=== PATIENT | female | born 1940 ===

== ENCOUNTER 2023-10-07 19:22 | Inpatient (IN) | payer MEDICARE, SELFPAY ==
[2023-10-07] VITALS (7 sets, daily range): BP systolic 106–190; BP diastolic 82–114; PULSE 65–102; RESP 18–20; TEMP 36.8–37; O2SAT 96–99; BMI 18.8
--- NOTE | 2023-10-07 19:41 | ED.FALL ---
HPI - Fall General Chief Complaint: Fall Stated Complaint: GLF/ Right groin pain Time Seen by Provider: 10/07/23 19:41 Source: patient and EMS Mode of arrival: EMS History of Present Illness HPI Narrative: Patient is an 83-year-old female who is brought to the emergency department by EMS for evaluation of a right hip injury. Patient states that she tripped while going down some stairs. Prior to the fall she did not have chest pain or palpitations or lightheadedness. She seems to not know exactly what happened but states that the only injuries that she sustained to her right hip. No neck pain. She has not on blood thinners. No diagnosed medical problems. Takes no medications. Review of Systems Constitutional Constitutional: Reports system reviewed and no additional complaints, except as documented Cardiovascular Cardiovascular: Reports system reviewed and no additional complaints, except as documented Respiratory Respiratory: Reports system reviewed and no additional complaints, except as documented Gastrointestinal Gastrointestinal: Reports system reviewed and no additional complaints, except as documented Musculoskeletal Musculoskeletal: Reports system reviewed and no additional complaints, except as documented Integumentary/Breasts Skin/Breast: Reports system reviewed and no additional complaints, except as documented Hematologic/Lymphatic On Anticoagulants: No Patient History Social History Smoking Status: Never smoker Smoking Status: Never smoker alcohol intake frequency: 0-2 drinks per day Substance Use Type: does not use Exam Initial Vital Signs Initial Vital Signs: Vital Signs Temperature 98.6 F 10/07/23 19:27 Pulse Rate 102 H 10/07/23 19:27 Respiratory Rate 20 10/07/23 19:27 Blood Pressure 190/114 H 10/07/23 19:27 Pulse Oximetry 99 10/07/23 19:27 Oxygen Delivery Method Room Air 10/07/23 19:27 Const General: cooperative, comfortable and No ill appearing HENHI Head: normal to inspection and normocephalic Resp Effort & Inspection: normal respiratory effort Cardio Rate: regular rate GI Inspection: normal to inspection and non-distended Back/Spine/Pelvis Cervical Spine: No cervical spinal tenderness Skin General: no rashes or lesions noted Neuro General: patient alert and patient awake Extrem Other: Extremity exam is unremarkable except for tenderness to palpation of the right hemipelvis. Course Orders Ordered: ED Orders 10/07/23 19:41 XR hip w pel if done RT 2V Stat 10/07/23 20:19 Basic Metabolic Panel Stat Complete Blood Count AUTO DIFF Stat 10/07/23 20:20 Consult to Orthopedic Surgery Stat 10/07/23 20:21 Education, smoking cessation ONGOING 10/07/23 20:23 Prothrombin Time INR Stat Urinalysis and Microscopic Stat 10/07/23 20:24 Consult to Discharge Planning Routine Consult to Occupational Therapy Evaluate & Treat Consult to Physical Therapy Evaluate & Treat Acetaminophen (Acetaminophen 325 Mg Tablet) 650 mg PO Q6H PRN PRN Reason: Fever/Mild Pain (1-3) Hydrocodone Bitart/Acetaminophen (Hydrocodone/Acet 5/325 Tablet) 1 tab PO Q4H PRN PRN Reason: Pain, Moderate (4-6) Albuterol (Albuterol 2.5 Mg/3 Ml Neb (Adult)) 2.5 mg INH [id number] PRN PRN Reason: Dyspnea Hydromorphone HCl (Hydromorphone 0.5 Mg Inj) 0.5 mg IV Q2H PRN PRN Reason: Pain, Severe (7-10) Sodium Chloride (Normal Saline 0.9%) 1,000 mls @ 100 mls/hr IV CONT SARAH Lorazepam (Lorazepam 2 Mg/Ml Inj) 0.25 mg IV Q4HR PRN PRN Reason: Anxiety Melatonin (Melatonin 3 Mg Tablet) 9 mg PO BEDTIME PRN PRN Reason: insomnia Naloxone HCl (Naloxone 0.4 Mg/Ml Vial) 0.2 mg IV Q2MIN PRN PRN Reason: Opiate Reversal Ondansetron HCl (Ondansetron 4 Mg/2 Ml Inj) 4 mg IV Q8HR PRN PRN Reason: Nausea And Vomiting Vital Signs Vital signs: Vital Signs - 8 hr 10/07/23 19:27 10/07/23 19:27 10/07/23 19:30 Temperature 98.6 F Pulse Rate 102 H 74 87 Respiratory Rate 20 Blood Pressure 190/114 H Pulse Oximetry 99 96 97 Oxygen Delivery Method Room Air 10/07/23 19:30 10/07/23 20:00 Temperature Pulse Rate 80 Respiratory Rate Blood Pressure 184/106 H Pulse Oximetry 98 Oxygen Delivery Method Room Air MDM - Fall Lab Data Attestation: I reviewed the patient's lab results. 10/07/23 20:19 10/07/23 20:19 Imaging Data Extremity x-ray #1: Radiologist's Impression: PROCEDURE: XR HIP W PEL IF DONE RT 2V INDICATIONS: R hip pain after fall TECHNIQUE: AP pelvis with lateral view(s) of the right hip(s). COMPARISON: None. FINDINGS: Bones: Acute fracture involving subcapital region of right femoral neck is seen with medial and superior displacement at fracture site. Pelvic ring appears intact. No suspicious bony lesions. Soft tissues: The visualized bowel gas pattern is normal. No suspicious soft tissue calcifications. IMPRESSION: Acute slightly displaced right femoral neck fracture as above MDM Narrative Medical decision making narrative: Patient does have a right femoral neck fracture. Discussed the case with Dr. Huang with Orthopedic surgery who asked the patient be admitted to the medicine service. He asked the patient be NPO after midnight however there was a possibility will not be until Tuesday until the patient has surgery. He will evaluate the patient tomorrow morning. Discussed the case with Dr. Chiu hospitalist on-call who will admit for further evaluation and treatment. Discussed the need for admission with the patient. She expressed understanding and agreement. Discharge Plan Departure Patient Disposition: Admitted As Inpatient Clinical Impression: Fracture of femoral neck, right
[2023-10-07 20:27] LABS: Add Manual Diff / Slide Review NO; Basophils Absolute Auto 0 /uL (0-100); Basophils Percent Auto 0.4 % (0-2); Eosinophils Absolute Auto 0 /uL (0-450); Eosinophils Percent Auto 0.1 % (2-4); Hematocrit 37.8 % (36-46); Hemoglobin 12.7 g/dL (12.0-16.0); Lymphocytes Absolute Auto 700 /uL (1100-4500); Lymphocytes Percent Auto 6.8 % (25-40); Mean Corpuscular HGB Conc 33.7 % (30-36); Mean Corpuscular Hemoglobin 33.2 PG (26-34); Mean Corpuscular Volume 98.4 fL (80-100); Monocytes Absolute Auto 600 /uL (0-900); Monocytes Percent Auto 5.9 % (3-14); Neutrophils Absolute Auto 9000 /uL (1500-7000); Neutrophils Percent Auto 86.8 % (50-75); Platelet Count 212 X10^3/uL (150-400); Red Blood Cell Count 3.84 X10^6/uL (4.0-5.2); Red Cell Distribution Width 13.4 % (11.6-14.8); White Blood Cell Count 10.4 X10^3/uL (4.5-11.0)
[2023-10-07 20:36] LABS: INR 0.9 (0.9-1.3); Prothrombin Time 10.5 SECONDS (9.4-12.5)
[2023-10-07 20:40] LABS: Alanine Aminotransferase 24 IU/L (<35); Albumin 4.2 g/dL (3.5-5.0); Albumin Globulin Ratio 1.2 (1.0-2.8); Alkaline Phosphatase 66 U/L (38-126); Aspartate Aminotransferase 30 IU/L (14-36); Bilirubin Total 0.6 mg/dL (0.2-1.3); Blood Urea Nitrogen 20 mg/dL (7-17); Calcium 9.7 mg/dL (8.4-10.2); Carbon Dioxide 26 mmol/L (22-32); Chloride 104 mmol/L (98-107); Estimated Glomerular Filt Rate 49 mL/min (>60); Globulin 3.4 g/dL (1.7-4.1); Glucose 116 mg/dL (80-110); HEMOLYSIS < 15 (0-50); Magnesium 2.1 mg/dL (1.6-2.3); Potassium 4.5 mmol/L (3.4-5.1); Sodium 139 mmol/L (137-145); Total Protein 7.6 g/dL (6.3-8.2)
[2023-10-07 21:07] LABS: Appearance Urine UA CLEAR; Bilirubin Urine UA NEGATIVE (NEGATIVE); Color Urine UA YELLOW; Glucose Urine UA NEGATIVE (Negative); Ketones Urine UA 1+ (NEGATIVE); Leukocyte Esterase Urine UA NEGATIVE (NEGATIVE); Nitrite Urine UA NEGATIVE (Negative); Occult Blood Urine UA NEGATIVE (Negative); Protein Urine UA NEGATIVE (Negative); Urobilinogen Urine UA 0.2 E.U./dL (0.2)
[2023-10-07 21:13] LABS: Bacteria Urine None Seen; Culture Indicated Urine Cult Not Indicated; RBC Urine None Seen (0-5/HPF); Squamous Epithelial Cell Urine None Seen (0-5/HPF); Urine Volume 10mL (spun); WBC Urine None Seen (0-5/HPF)
[2023-10-07] MEDS: SODIUM CHLORIDE 0.9% 1,000 ML 100 ML IV (21:23)
--- NOTE | 2023-10-07 21:36 | P.HP_ITS ---
History of Present Illness History of Present Illness Chief complaint: GLF/ Right groin pain Narrative: 83 years old female without any past medical history presents to the ER after ground-level fall when she tripped while going down some stairs. Immediately after the fall she started to experience right hip pain. The patient is poor historian. Does not know why she is in the hospital but complain of right hip pain. Lives with her . Denies any medical problems or taking any medications. In the ER she was found to have acute slightly displaced right femoral neck fracture on x-ray. Orthopedic surgery was contacted and recommended n.p.o. after midnight and possible surgery in the morning. Laboratory was essentially unremarkable except for creatinine of 1.1 and glucose 116. [facility] Social History Smoking Status: Never smoker Review of Systems Review of Systems ROS: Yes All systems reviewed with the patient and are negative except as otherwise documented Constitutional Constitutional: Reports as per HPI and Reports system reviewed and no additional complaints, except as documented Eyes Eyes: Reports as per HPI and Reports system reviewed and no additional complaints, except as documented ENT Ears, Nose, Mouth, and Throat: Yes as per HPI and Yes system reviewed and no additional complaints, except as documented Cardiovascular Cardiovascular: Reports system reviewed and no additional complaints, except as documented Respiratory Respiratory: Reports system reviewed and no additional complaints, except as documented Gastrointestinal Gastrointestinal: Reports system reviewed and no additional complaints, except as documented Genitourinary Genitourinary: Reports system reviewed and no additional complaints, except as documented Musculoskeletal Musculoskeletal: Reports system reviewed and no additional complaints, except as documented, Reports abnormal gait and Reports numbness Neurologic Neurologic: Reports system reviewed and no additional complaints, except as documented, Reports abnormal gait, Reports confusion and Reports numbness Psychiatric Psychiatric: Reports system reviewed and no additional complaints, except as documented and Reports confusion Exam Vital Signs (past 8 hours): - 10/07/23 19:27 10/07/23 19:27 10/07/23 19:30 Temperature 98.6 F Pulse Rate 102 H 74 87 Respiratory Rate 20 Blood Pressure 190/114 H Pulse Oximetry 99 96 97 Oxygen Delivery Method Room Air Oxygen Flow Rate 10/07/23 19:30 10/07/23 20:00 10/07/23 20:30 Temperature Pulse Rate 80 85 Respiratory Rate Blood Pressure 184/106 H Pulse Oximetry 98 97 Oxygen Delivery Method Room Air Oxygen Flow Rate 10/07/23 20:31 10/07/23 20:31 10/07/23 21:00 Temperature Pulse Rate 85 80 Respiratory Rate Blood Pressure 133/89 Pulse Oximetry 98 98 Oxygen Delivery Method Room Air Room Air Oxygen Flow Rate 10/07/23 21:00 10/07/23 21:20 Temperature 98.2 F Pulse Rate 65 Respiratory Rate 18 Blood Pressure 129/82 106/85 Pulse Oximetry 99 Oxygen Delivery Method Oxygen Flow Rate 0 Oxygen Delivery Method Room Air Oxygen Flow Rate 0 Const General: cooperative, comfortable and well developed Orientation: alert and oriented x3 HENMT Head: normal to inspection, normocephalic and atraumatic Face and sinus: normal facial exam Mouth: oral mucosae normal and moist mucous membranes Throat: posterior oropharynx normal Eyes General: appearance normal, both eyes and all related structures Pupils: PERRL EOM: EOM intact bilaterally Neck Neck: normal visual inspection and full ROM Chest Chest: normal inspection of the chest Resp Effort & Inspection: normal respiratory effort and able to speak in complete sentences Auscultation: clear to auscultation bilaterally Cardio Palpation: normal PMI Rate: regular rate Rhythm: regular rhythm Heart Sounds: S1 normal and S2 normal GI Inspection: normal to inspection Palpation: soft and no hepatosplenomegaly Auscultation: normal bowel sounds Skin General: no rashes or lesions noted Lesions: no lesions Rashes: no rashes Trauma: no lacerations or abrasions Neuro General: patient alert, patient awake, patient oriented x3 and no focal motor deficits Cranial Nerves: CN's II-XI intact bilaterally Cognition: normal cognition Speech: speech normal Gait: normal gait Motor: muscle tone normal throughout Sensory Exam: no sensory deficits noted Extrem General: full ROM and no calf tenderness Psych Appearance: grossly normal Mental Status: mental status grossly normal Speech and Movement: speech and movement normal Objective Labs 10/07/23 20:19 10/07/23 20:19 Labs: Laboratory Results - last 24 hr 10/07/23 10/07/23 10/07/23 20:19 20:19 20:19 WBC 10.4 RBC 3.84 L Hgb 12.7 Hct 37.8 MCV 98.4 MCH 33.2 MCHC 33.7 RDW 13.4 Plt Count 212 Neut % (Auto) 86.8 H Lymph % (Auto) 6.8 L [place] % (Auto) 5.9 Eos % (Auto) 0.1 L Baso % (Auto) 0.4 Neut # (Auto) 9000 H Lymph # (Auto) 700 L [place] # (Auto) 600 Eos # (Auto) 0 Baso # (Auto) 0 PT 10.5 INR 0.9 Sodium Cancelled 139 Potassium Cancelled 4.5 Chloride Cancelled Carbon Dioxide BUN Creatinine Estimated GFR BUN/Creatinine Ratio Glucose Calcium Magnesium Total Bilirubin AST ALT Alkaline Phosphatase Total Protein Albumin Globulin Albumin/Globulin Ratio Urine Color Urine Appearance Urine pH Ur Specific [place] Urine Protein Urine Glucose (UA) Urine Ketones Urine Occult Blood Urine Nitrate Urine Bilirubin Urine Urobilinogen Ur Leukocyte Esterase Urine RBC Urine WBC Ur Squamous Epith Cells Urine Bacteria Ur Culture Indicated? Vol Urine Centrifuged 10/07/23 10/07/23 10/07/23 20:19 20:19 20:19 WBC RBC Hgb Hct MCV MCH MCHC RDW Plt Count Neut % (Auto) Lymph % (Auto) [place] % (Auto) Eos % (Auto) Baso % (Auto) Neut # (Auto) Lymph # (Auto) [place] # (Auto) Eos # (Auto) Baso # (Auto) PT INR Sodium Potassium Chloride 104 Carbon Dioxide Cancelled 26 BUN Cancelled 20 H Creatinine Cancelled Estimated GFR BUN/Creatinine Ratio Glucose Calcium Magnesium Total Bilirubin AST ALT Alkaline Phosphatase Total Protein Albumin Globulin Albumin/Globulin Ratio Urine Color Urine Appearance Urine pH Ur Specific [place] Urine Protein Urine Glucose (UA) Urine Ketones Urine Occult Blood Urine Nitrate Urine Bilirubin Urine Urobilinogen Ur Leukocyte Esterase Urine RBC Urine WBC Ur Squamous Epith Cells Urine Bacteria Ur Culture Indicated? Vol Urine Centrifuged 10/07/23 10/07/23 10/07/23 20:19 20:19 20:19 WBC RBC Hgb Hct MCV MCH MCHC RDW Plt Count Neut % (Auto) Lymph % (Auto) [place] % (Auto) Eos % (Auto) Baso % (Auto) Neut # (Auto) Lymph # (Auto) [place] # (Auto) Eos # (Auto) Baso # (Auto) PT INR Sodium Potassium Chloride Carbon Dioxide BUN Creatinine 1.11 H Estimated GFR Cancelled 49 L BUN/Creatinine Ratio Cancelled 18.0 Glucose Cancelled Calcium Magnesium Total Bilirubin AST ALT Alkaline Phosphatase Total Protein Albumin Globulin Albumin/Globulin Ratio Urine Color Urine Appearance Urine pH Ur Specific [place] Urine Protein Urine Glucose (UA) Urine Ketones Urine Occult Blood Urine Nitrate Urine Bilirubin Urine Urobilinogen Ur Leukocyte Esterase Urine RBC Urine WBC Ur Squamous Epith Cells Urine Bacteria Ur Culture Indicated? Vol Urine Centrifuged 10/07/23 10/07/23 10/07/23 20:19 20:19 21:01 WBC RBC Hgb Hct MCV MCH MCHC RDW Plt Count Neut % (Auto) Lymph % (Auto) [place] % (Auto) Eos % (Auto) Baso % (Auto) Neut # (Auto) Lymph # (Auto) [place] # (Auto) Eos # (Auto) Baso # (Auto) PT INR Sodium Potassium Chloride Carbon Dioxide BUN Creatinine Estimated GFR BUN/Creatinine Ratio Glucose 116 H Calcium Cancelled 9.7 Magnesium 2.1 Total Bilirubin 0.6 AST 30 ALT 24 Alkaline Phosphatase 66 Total Protein 7.6 Albumin 4.2 Globulin 3.4 Albumin/Globulin Ratio 1.2 Urine Color Yellow Urine Appearance Clear Urine pH 6.0 Ur Specific [place] 1.020 Urine Protein Negative Urine Glucose (UA) Negative Urine Ketones 1+ H Urine Occult Blood Negative Urine Nitrate Negative Urine Bilirubin Negative Urine Urobilinogen 0.2 Ur Leukocyte Esterase Negative Urine RBC None seen Urine WBC None seen Ur Squamous Epith Cells None seen Urine Bacteria None seen Ur Culture Indicated? Cult not indicated Vol Urine Centrifuged 10ml (spun) Assessment & Plan Assessment & Plan narrative: Acute slightly displaced right femoral neck fracture after ground-level fall. -N.p.o. after midnight -Pain medications and anti-emetics as needed -IV fluids -Orthopedic surgery consult -Bed rest -PT and OT evaluation on discharge Time Spent With Patient Time with patient: 50 to 69 minutes with 50% spent counseling/coordinating care Quality VTE Deep Vein Thrombosis/Pulmonary Embolism Present on Admission: No MIPS - Admit I confirm the patient?s Advance Care Plan is present, Code status is documented, Surrogate decision maker is in patient?s record [If Yes, STOP here]: Yes MIPS - Meds 'Current medications' to include all prescriptions, [id number] products, herbals, cannabis/cannabidiol products, and vitamin/mineral/dietary (nutritional) supplements. I have utilized all available resources to obtain, update, or review the patient?s current medications. [If Yes, STOP here]: Yes
[2023-10-07] MEDS: HYDROCODONE/ACET 5/325 TABLET 1 TAB PO (22:24)
[2023-10-08] VITALS (13 sets, daily range): BP systolic 114–154; BP diastolic 65–91; PULSE 65–103; RESP 12–18; TEMP 35.9–37.2; O2SAT 92–99; BMI 18.8
--- NOTE | 2023-10-08 | DI.RAD.S_ITS ---
PROCEDURE: XR HIP W PEL IF DONE RT 2V INDICATIONS: POST OP TECHNIQUE: AP pelvis and lateral view of the hip acquired. COMPARISON: [facility], CR, XR HIP W PEL IF DONE RT 2V, 10/08/2023, 19:15. [facility], CR, XR HIP W PEL IF DONE RT 2V, 10/07/2023, 19:51. FINDINGS: Bones: Patient is status post right total hip arthroplasty, with hardware components in expected positions. The hip joint appears congruent. The visualized bony structures appear intact. Soft tissues: Overlying postoperative changes are noted. No suspicious soft tissue densities. IMPRESSION: Expected post-operative appearance of a hip arthroplasty. Dictated by: Clyde Duarte M.D. on 10/08/2023 at 20:54 Approved by: Clyde Duarte M.D. on 10/08/2023 at 20:55
--- NOTE | 2023-10-08 | DI.RAD.S_ITS ---
PROCEDURE: XR HIP W PEL IF DONE RT 2V INDICATIONS: INTEROP ANTERIOR TECHNIQUE: 2 view(s) of the hip acquired. COMPARISON: [facility], CR, XR HIP W PEL IF DONE RT 2V, 10/07/2023, 19:51. FINDINGS: Bones: Patient is status post right hip arthroplasty, with hardware components in expected positions. The hip joint appears congruent. The visualized bony structures appear intact. Soft tissues: Overlying postoperative changes are noted. No suspicious soft tissue densities. IMPRESSION: Expected post-operative appearance of a hip arthroplasty. Dictated by: Clyde Duarte M.D. on 10/08/2023 at 20:11 Approved by: Clyde Duarte M.D. on 10/08/2023 at 20:12
[2023-10-08] MEDS: HYDROMORPHONE 0.5 MG INJ IV ×5 (04:52→17:17)
--- NOTE | 2023-10-08 07:21 | P.PN_ITS ---
Subjective Subjective Interval history: Patient awaiting surgery and having quite a bit of pain in her R groin. Dilaudid IV dose increased. Exam Vital Signs (past 8 hours): - 10/08/23 00:44 10/08/23 04:52 Temperature 97.7 F 98.2 F Pulse Rate 76 88 Respiratory Rate 18 18 Blood Pressure 139/71 139/66 Pulse Oximetry 97 95 Oxygen Flow Rate 0 0 Oxygen Delivery Method Room Air Oxygen Flow Rate 0 Narrative Exam Narrative: GEN: mod distress, in pain from hip fracture HEENT: moist mucous membranes, PERRL NECK: trachea midline, no JVD CV: regular rate and rhythm, no murmurs PULM: clear bilaterally ABD: soft, nontender, nondistended, no organomegaly EXT: warm and well perfused with no edema NEURO: awake, alert, oriented, no focal deficits Objective Labs 10/08/23 09:15 10/08/23 09:15 Labs: Laboratory Results - last 24 hr 10/07/23 10/07/23 10/07/23 20:19 20:19 20:19 WBC 10.4 RBC 3.84 L Hgb 12.7 Hct 37.8 MCV 98.4 MCH 33.2 MCHC 33.7 RDW 13.4 Plt Count 212 Neut % (Auto) 86.8 H Lymph % (Auto) 6.8 L [place] % (Auto) 5.9 Eos % (Auto) 0.1 L Baso % (Auto) 0.4 Neut # (Auto) 9000 H Lymph # (Auto) 700 L [place] # (Auto) 600 Eos # (Auto) 0 Baso # (Auto) 0 PT 10.5 INR 0.9 Sodium Cancelled 139 Potassium Cancelled 4.5 Chloride Cancelled Carbon Dioxide BUN Creatinine Estimated GFR BUN/Creatinine Ratio Glucose Calcium Magnesium Total Bilirubin AST ALT Alkaline Phosphatase Total Protein Albumin Globulin Albumin/Globulin Ratio Urine Color Urine Appearance Urine pH Ur Specific [place] Urine Protein Urine Glucose (UA) Urine Ketones Urine Occult Blood Urine Nitrate Urine Bilirubin Urine Urobilinogen Ur Leukocyte Esterase Urine RBC Urine WBC Ur Squamous Epith Cells Urine Bacteria Ur Culture Indicated? Vol Urine Centrifuged 10/07/23 10/07/23 10/07/23 20:19 20:19 20:19 WBC RBC Hgb Hct MCV MCH MCHC RDW Plt Count Neut % (Auto) Lymph % (Auto) [place] % (Auto) Eos % (Auto) Baso % (Auto) Neut # (Auto) Lymph # (Auto) [place] # (Auto) Eos # (Auto) Baso # (Auto) PT INR Sodium Potassium Chloride 104 Carbon Dioxide Cancelled 26 BUN Cancelled 20 H Creatinine Cancelled Estimated GFR BUN/Creatinine Ratio Glucose Calcium Magnesium Total Bilirubin AST ALT Alkaline Phosphatase Total Protein Albumin Globulin Albumin/Globulin Ratio Urine Color Urine Appearance Urine pH Ur Specific [place] Urine Protein Urine Glucose (UA) Urine Ketones Urine Occult Blood Urine Nitrate Urine Bilirubin Urine Urobilinogen Ur Leukocyte Esterase Urine RBC Urine WBC Ur Squamous Epith Cells Urine Bacteria Ur Culture Indicated? Vol Urine Centrifuged 10/07/23 10/07/23 10/07/23 20:19 20:19 20:19 WBC RBC Hgb Hct MCV MCH MCHC RDW Plt Count Neut % (Auto) Lymph % (Auto) [place] % (Auto) Eos % (Auto) Baso % (Auto) Neut # (Auto) Lymph # (Auto) [place] # (Auto) Eos # (Auto) Baso # (Auto) PT INR Sodium Potassium Chloride Carbon Dioxide BUN Creatinine 1.11 H Estimated GFR Cancelled 49 L BUN/Creatinine Ratio Cancelled 18.0 Glucose Cancelled Calcium Magnesium Total Bilirubin AST ALT Alkaline Phosphatase Total Protein Albumin Globulin Albumin/Globulin Ratio Urine Color Urine Appearance Urine pH Ur Specific [place] Urine Protein Urine Glucose (UA) Urine Ketones Urine Occult Blood Urine Nitrate Urine Bilirubin Urine Urobilinogen Ur Leukocyte Esterase Urine RBC Urine WBC Ur Squamous Epith Cells Urine Bacteria Ur Culture Indicated? Vol Urine Centrifuged 10/07/23 10/07/23 10/07/23 20:19 20:19 21:01 WBC RBC Hgb Hct MCV MCH MCHC RDW Plt Count Neut % (Auto) Lymph % (Auto) [place] % (Auto) Eos % (Auto) Baso % (Auto) Neut # (Auto) Lymph # (Auto) [place] # (Auto) Eos # (Auto) Baso # (Auto) PT INR Sodium Potassium Chloride Carbon Dioxide BUN Creatinine Estimated GFR BUN/Creatinine Ratio Glucose 116 H Calcium Cancelled 9.7 Magnesium 2.1 Total Bilirubin 0.6 AST 30 ALT 24 Alkaline Phosphatase 66 Total Protein 7.6 Albumin 4.2 Globulin 3.4 Albumin/Globulin Ratio 1.2 Urine Color Yellow Urine Appearance Clear Urine pH 6.0 Ur Specific [place] 1.020 Urine Protein Negative Urine Glucose (UA) Negative Urine Ketones 1+ H Urine Occult Blood Negative Urine Nitrate Negative Urine Bilirubin Negative Urine Urobilinogen 0.2 Ur Leukocyte Esterase Negative Urine RBC None seen Urine WBC None seen Ur Squamous Epith Cells None seen Urine Bacteria None seen Ur Culture Indicated? Cult not indicated Vol Urine Centrifuged 10ml (spun) [facility] Social History household members: spouse Smoking Status: Never smoker Assessment & Plan Assessment & Plan narrative: # Acute slightly displaced right femoral neck fracture after ground-level fall. -N.p.o. for surgery at 1400 -Pain medications and anti-emetics as needed -IV fluids -Orthopedic surgery consulted -will likely be able to go home after surgery with HH PT Dispo: Pending surgery. Likely home 10/09 with HH. Time Spent With Patient Time with patient: 50 to 69 minutes with 50% spent counseling/coordinating care Quality VTE Deep Vein Thrombosis/Pulmonary Embolism Present on Admission: No
[2023-10-08] MEDS: SODIUM CHLORIDE 0.9% 1,000 ML 100 ML IV (07:53)
[2023-10-08] MEDS: HYDROCODONE/ACET 5/325 TABLET 1 TAB PO (07:53)
[2023-10-08 09:35] LABS: Add Manual Diff / Slide Review NO; Basophils Absolute Auto 0 /uL (0-100); Basophils Percent Auto 0.6 % (0-2); Eosinophils Absolute Auto 0 /uL (0-450); Eosinophils Percent Auto 0.2 % (2-4); Hematocrit 33.9 % (36-46); Hemoglobin 11.7 g/dL (12.0-16.0); Lymphocytes Absolute Auto 900 /uL (1100-4500); Lymphocytes Percent Auto 12.9 % (25-40); Mean Corpuscular HGB Conc 34.4 % (30-36); Mean Corpuscular Hemoglobin 33.7 PG (26-34); Monocytes Absolute Auto 600 /uL (0-900); Monocytes Percent Auto 8.5 % (3-14); Neutrophils Absolute Auto 5500 /uL (1500-7000); Neutrophils Percent Auto 77.8 % (50-75); Platelet Count 190 X10^3/uL (150-400); Red Blood Cell Count 3.46 X10^6/uL (4.0-5.2); White Blood Cell Count 7.1 X10^3/uL (4.5-11.0)
[2023-10-08 09:53] LABS: BUN Creatinine Ratio 17.6 (6-22); Blood Urea Nitrogen 18 mg/dL (7-17); Calcium 8.9 mg/dL (8.4-10.2); Carbon Dioxide 25 mmol/L (22-32); Chloride 107 mmol/L (98-107); Estimated Glomerular Filt Rate 54 mL/min (>60); Glucose 113 mg/dL (80-110); HEMOLYSIS < 15 (0-50); Potassium 4.2 mmol/L (3.4-5.1); Sodium 136 mmol/L (137-145)
[2023-10-08] MEDS: HYDROMORPHONE 1 MG INJ IV ×2 (10:26→13:00)
[2023-10-08] MEDS: methocarbamoL 500 MG TABLET PO (13:00)
--- NOTE | 2023-10-08 17:52 | P.HP_ITS ---
History of Present Illness History of Present Illness Chief complaint: GLF/ Right groin pain Narrative: Patient seen in preop holding. Unable to provide history due to dementia. provides history. They are Quaker neuroscientist. She has no known medical history as she does not see a physician regularly. She had a ground level fall and was airlifted here. She has been diagnosed with a right femoral neck fracture which is displaced. She has pain in the right hip. It is worsened by movement and partially alleviated by rest. It has been present since the time of injury. [facility] Social History household members: spouse Smoking Status: Never smoker Meds Home Medications and Allergies Home Medications Medication Instructions Recorded Confirmed Type No Known Home Medications 10/07/23 10/07/23 History Allergies Allergy/AdvReac Type Severity Reaction Status Date / Time No Known Drug Allergies Allergy Verified 10/07/23 22:23 Review of Systems Review of Systems ROS: Yes All systems reviewed with the patient and are negative except as otherwise documented Exam Vital Signs (past 8 hours): - 10/08/23 13:32 10/08/23 17:45 Temperature 98.3 F 99.0 F Pulse Rate 66 89 Respiratory Rate 16 13 Blood Pressure 118/81 135/75 Pulse Oximetry 98 95 Oxygen Delivery Method Room Air Oxygen Delivery Method Room Air Oxygen Flow Rate 0 Narrative Exam Narrative: Right lower extremity: Ecchymosis around the thigh. Sensation intact to light touch in L2 through S1 nerve distributions. Flexes and extends hallux and ankle Const General: cooperative Orientation: alert and awake HENOR Head: normal to inspection Ears: hearing grossly normal bilaterally Eyes General: appearance normal, both eyes and all related structures Neck Neck: normal visual inspection Resp Effort & Inspection: normal respiratory effort and able to speak in complete sentences Cardio Pulses: other (peripheral pulses present) Skin Lesions: no lesions Rashes: no rashes Neuro General: patient alert, patient awake and moves all extremities Psych Appearance: grossly normal Objective Labs 10/08/23 09:15 10/08/23 09:15 Labs: Laboratory Results - last 24 hr 10/07/23 10/07/23 10/07/23 20:19 20:19 20:19 WBC 10.4 RBC 3.84 L Hgb 12.7 Hct 37.8 MCV 98.4 MCH 33.2 MCHC 33.7 RDW 13.4 Plt Count 212 Neut % (Auto) 86.8 H Lymph % (Auto) 6.8 L Atkinson % (Auto) 5.9 Eos % (Auto) 0.1 L Baso % (Auto) 0.4 Neut # (Auto) 9000 H Lymph # (Auto) 700 L Atkinson # (Auto) 600 Eos # (Auto) 0 Baso # (Auto) 0 PT 10.5 INR 0.9 Sodium Cancelled 139 Potassium Cancelled 4.5 Chloride Cancelled Carbon Dioxide BUN Creatinine Estimated GFR BUN/Creatinine Ratio Glucose Calcium Magnesium Total Bilirubin AST ALT Alkaline Phosphatase Total Protein Albumin Globulin Albumin/Globulin Ratio Urine Color Urine Appearance Urine pH Ur Specific [place] Urine Protein Urine Glucose (UA) Urine Ketones Urine Occult Blood Urine Nitrate Urine Bilirubin Urine Urobilinogen Ur Leukocyte Esterase Urine RBC Urine WBC Ur Squamous Epith Cells Urine Bacteria Ur Culture Indicated? Vol Urine Centrifuged Blood Type Antibody Screen Crossmatch 10/07/23 10/07/23 10/07/23 20:19 20:19 20:19 WBC RBC Hgb Hct MCV MCH MCHC RDW Plt Count Neut % (Auto) Lymph % (Auto) Atkinson % (Auto) Eos % (Auto) Baso % (Auto) Neut # (Auto) Lymph # (Auto) Atkinson # (Auto) Eos # (Auto) Baso # (Auto) PT INR Sodium Potassium Chloride 104 Carbon Dioxide Cancelled 26 BUN Cancelled 20 H Creatinine Cancelled Estimated GFR BUN/Creatinine Ratio Glucose Calcium Magnesium Total Bilirubin AST ALT Alkaline Phosphatase Total Protein Albumin Globulin Albumin/Globulin Ratio Urine Color Urine Appearance Urine pH Ur Specific [place] Urine Protein Urine Glucose (UA) Urine Ketones Urine Occult Blood Urine Nitrate Urine Bilirubin Urine Urobilinogen Ur Leukocyte Esterase Urine RBC Urine WBC Ur Squamous Epith Cells Urine Bacteria Ur Culture Indicated? Vol Urine Centrifuged Blood Type Antibody Screen Crossmatch 10/07/23 10/07/23 10/07/23 20:19 20:19 20:19 WBC RBC Hgb Hct MCV MCH MCHC RDW Plt Count Neut % (Auto) Lymph % (Auto) Atkinson % (Auto) Eos % (Auto) Baso % (Auto) Neut # (Auto) Lymph # (Auto) Atkinson # (Auto) Eos # (Auto) Baso # (Auto) PT INR Sodium Potassium Chloride Carbon Dioxide BUN Creatinine 1.11 H Estimated GFR Cancelled 49 L BUN/Creatinine Ratio Cancelled 18.0 Glucose Cancelled Calcium Magnesium Total Bilirubin AST ALT Alkaline Phosphatase Total Protein Albumin Globulin Albumin/Globulin Ratio Urine Color Urine Appearance Urine pH Ur Specific [place] Urine Protein Urine Glucose (UA) Urine Ketones Urine Occult Blood Urine Nitrate Urine Bilirubin Urine Urobilinogen Ur Leukocyte Esterase Urine RBC Urine WBC Ur Squamous Epith Cells Urine Bacteria Ur Culture Indicated? Vol Urine Centrifuged Blood Type Antibody Screen Crossmatch 10/07/23 10/07/23 10/07/23 20:19 20:19 21:01 WBC RBC Hgb Hct MCV MCH MCHC RDW Plt Count Neut % (Auto) Lymph % (Auto) Atkinson % (Auto) Eos % (Auto) Baso % (Auto) Neut # (Auto) Lymph # (Auto) Atkinson # (Auto) Eos # (Auto) Baso # (Auto) PT INR Sodium Potassium Chloride Carbon Dioxide BUN Creatinine Estimated GFR BUN/Creatinine Ratio Glucose 116 H Calcium Cancelled 9.7 Magnesium 2.1 Total Bilirubin 0.6 AST 30 ALT 24 Alkaline Phosphatase 66 Total Protein 7.6 Albumin 4.2 Globulin 3.4 Albumin/Globulin Ratio 1.2 Urine Color Yellow Urine Appearance Clear Urine pH 6.0 Ur Specific [place] 1.020 Urine Protein Negative Urine Glucose (UA) Negative Urine Ketones 1+ H Urine Occult Blood Negative Urine Nitrate Negative Urine Bilirubin Negative Urine Urobilinogen 0.2 Ur Leukocyte Esterase Negative Urine RBC None seen Urine WBC None seen Ur Squamous Epith Cells None seen Urine Bacteria None seen Ur Culture Indicated? Cult not indicated Vol Urine Centrifuged 10ml (spun) Blood Type Antibody Screen Crossmatch 10/08/23 10/08/23 09:15 09:22 WBC 7.1 RBC 3.46 L Hgb 11.7 L Hct 33.9 L MCV 98.0 MCH 33.7 MCHC 34.4 RDW 13.0 Plt Count 190 Neut % (Auto) 77.8 H Lymph % (Auto) 12.9 L Atkinson % (Auto) 8.5 Eos % (Auto) 0.2 L Baso % (Auto) 0.6 Neut # (Auto) 5500 Lymph # (Auto) 900 L Atkinson # (Auto) 600 Eos # (Auto) 0 Baso # (Auto) 0 PT INR Sodium 136 L Potassium 4.2 Chloride 107 Carbon Dioxide 25 BUN 18 H Creatinine 1.02 Estimated GFR 54 L BUN/Creatinine Ratio 17.6 Glucose 113 H Calcium 8.9 Magnesium Total Bilirubin AST ALT Alkaline Phosphatase Total Protein Albumin Globulin Albumin/Globulin Ratio Urine Color Urine Appearance Urine pH Ur Specific [place] Urine Protein Urine Glucose (UA) Urine Ketones Urine Occult Blood Urine Nitrate Urine Bilirubin Urine Urobilinogen Ur Leukocyte Esterase Urine RBC Urine WBC Ur Squamous Epith Cells Urine Bacteria Ur Culture Indicated? Vol Urine Centrifuged Blood Type B Positive Antibody Screen Negative Crossmatch See Detail Assessment & Plan Assessment and plan (1) Fracture of femoral neck, right: Status: Acute Plan Patient has reportedly fairly active doing things such as yd work however has severe dementia. She has been unaware that she has a fractured hip throughout the day today in preparation for surgery. I am going to proceed with a right hip hemiarthroplasty. Given her unknown medical condition she may have underlying comorbidities which are undiagnosed. She does not see a physician regularly due to her temple beliefs. This inherently elevates the risk of the surgery. In an attempt to mitigate this risk we have cross matched her for 2 units of packed red blood cells. She is admitted to medical service. She will likely require a prison facility stay postoperatively Quality VTE Deep Vein Thrombosis/Pulmonary Embolism Present on Admission: No
[2023-10-08] MEDS: LACTATED RINGERS 1,000 ML 42 ML IV ×2 (18:02→19:24)
[2023-10-08] MEDS: CEFAZOLIN 2 GM/100 ML PREMIX 100 ML IV (18:10)
[2023-10-08] MEDS: TRANEXAMIC ACID 1,000 MG in SODIUM CHLORIDE 0.9% 100 ML 200 MG IV ×2 (18:38→19:24)
--- NOTE | 2023-10-08 18:44 | SUR.OPER ---
Supine on padded Ola table with bilateral legs secured in padded positioning boots and suspended in positioning spars, operative leg in traction per surgeon. Head on one pillow. Arm on non-operative side secured on padded armboard <90 degrees abduction. Arm on operative side padded and resting across chest then secured with tape over sheet. Padded perineal post in place per surgeon.
[2023-10-08] MEDS: ROPIVACAINE/EPI/CLONIDINE/KET 50 ML SYRINGE INJ (18:50)
--- NOTE | 2023-10-08 20:36 | P.OP_ITS ---
Operative Date/Time/Diagnoses Date of procedure: 10/08/23 Pre-op diagnosis: Displaced right femoral neck fracture Post-op diagnosis: same Procedure & Clinicians Procedure: Right hip hemiarthroplasty Same procedure as scheduled: Yes Surgeon: Lon Huang Click Yes if Unassisted: Yes Anesthesia Type: General and Local Operative Notes Estimated Blood Loss (mL): 200 Procedure in detail: Implants: Depuy Cemented Hemiarthroplasty: * Size 3 standard offset C Stem Cemented Femoral Stem * Size 47 -3 Unipolar Femoral Head Procedure in Detail: This patient sustained a femoral neck fracture in a ground level fall. Risks and benefits of operative versus nonoperative management were discussed at length and the patient wished to proceed with operative management. ?The patient was met in the preoperative holding area. ?All questions were answered. ?The operative site was marked. ?Informed consent was signed. ?The patient was brought back to the operating room and anesthesia was induced. ?A time-out procedure was performed. ?The patient was brought back to the operating room and placed supine on the [place] table. All bony prominences were padded. She was prepped and draped in the usual sterile fashion. No physician library technical assistant was available for the procedure so I used the [employer] Gripper system for soft tissue retraction. A time-out procedure was performed following our usual inpatient protocol. She was prepped and draped in the usual sterile fashion. X- rays were displayed during the procedure demonstrating the fracture pattern on the injured hip. I began by making a direct anterior approach to the hip. The TFL and rectus muscles were split and I dissected through the floor of the TFL. The lateral circumflex vessels were identified and coagulated. Cobra retractors were placed superior and inferior to the femoral neck. I released the indirect head of rectus femoris. I made a longitudinal capsulotomy. I placed tag stitches in the capsule. I placed a soft tissue retractor over the tag stitches which remained in place for the remainder of the procedure. I replaced the Cobra retractors intracapsularly. The femoral neck was re-cut with a freshening cut below the site of the femoral neck fracture. The head was removed and measured to determine the appropriate head size for final implants. I placed a retractor over the greater trochanter and released the capsule in 90? of external rotation. I placed a [place] hook and hyperextended and adducted the leg with traction off. I externally rotated to approximately 130? and performed a release of the conjoined tendon. I elevated the femur. I broached up to a size 2 cemented stem and calcar planed. I placed trial components and removed all retractors and reduced the hip. I found that the hip was stable with maximum external rotation to 120? as well as a 45 degree drop test. On fluoroscopy there was increased offset and appropriate leg length. On an AP hip the stem was in varus. I returned to the broaching position replaced retractors and elevated the femur. I broached up to a size 3 and sank the broach to the same point as the size 2 broach. I then prepared for cementation. Prior to cementation I irrigated the canal, placed a cement restrictor, irrigated the canal again, placed epinephrine-soaked vaginal packing with a whistle-tip catheter, and removed the whistle-tip catheter after insertion of cement. Cement was allowed to dry and a unipolar hemiarthroplasty head was impacted into place on a clean dry trunnion. All retractors were removed and the hip was reduced. Fluoroscopic images were obtained demonstrating appropriate leg length and offset on an AP pelvis image as well as appropriate positioning of the stem on an AP hip image. The hip was stable with maximum external rotation to 110? as well as a 45 degree drop test. The wound was soaked with dilute Betadine and peroxide. The hip was closed using a combination of Vicryl Stratafix and Monocryl sutures. A dilute mixture of ropivacaine epinephrine clonidine and Toradol was infiltrated throughout the wound after closure of the TFL fascia. Dermabond was applied. A darby dressing was applied. The patient was transferred off of the operating room table and brought to the PACU where she awoke without complication. She was noted to have intact dorsiflexion and plantar flexion of her hallux and ankle as well as a palpable DP pulse. Postoperative images were obtained which corresponded with the intraoperative fluoroscopy. ? Plan for aftercare: * Weightbearing as tolerated * Maintain dressing until follow up in 2 weeks with our clinic. Please send with spare Aquacel dressings as patient is likely to remove them due to her dementia * Does not need to comply with anterior hip precautions as her dementia would make this too challenging for her to remember * Recommend use of a walker if patient will comply with this * Aspirin 81 twice per day for DVT prophylaxis * Has adequate home help from family but may require discharge to long-term facility due to combination of underlying dementia and this injury * Follow [facility] at [facility] in 2 weeks
[2023-10-08] MEDS: LACTATED RINGERS 1,000 ML 100 ML IV (21:29)
[2023-10-08] MEDS: ASPIRIN EC 81 MG TABLET PO (22:20)
[2023-10-08] MEDS: DOCUSATE 100 MG CAPSULE PO (22:20)
[2023-10-09] VITALS: BP 106/62; PULSE 77; RESP 16; O2SAT 97
[2023-10-09] MEDS: CEFAZOLIN 2 GM/100 ML PREMIX 100 ML IV ×2 (03:50→11:10)
[2023-10-09 04:00] VITALS: BP 115/62; PULSE 69; RESP 14; TEMP 36.3; O2SAT 100
[2023-10-09 05:28] LABS: Add Manual Diff / Slide Review NO; Basophils Absolute Auto 0 /uL (0-100); Basophils Percent Auto 0.5 % (0-2); Eosinophils Absolute Auto 100 /uL (0-450); Eosinophils Percent Auto 1.5 % (2-4); Hematocrit 30.1 % (36-46); Hemoglobin 10.3 g/dL (12.0-16.0); Lymphocytes Absolute Auto 1100 /uL (1100-4500); Lymphocytes Percent Auto 17.2 % (25-40); Mean Corpuscular HGB Conc 34.3 % (30-36); Mean Corpuscular Hemoglobin 33.8 PG (26-34); Mean Corpuscular Volume 98.7 fL (80-100); Monocytes Absolute Auto 500 /uL (0-900); Monocytes Percent Auto 7.6 % (3-14); Neutrophils Absolute Auto 4600 /uL (1500-7000); Neutrophils Percent Auto 73.2 % (50-75); Platelet Count 144 X10^3/uL (150-400); Red Blood Cell Count 3.05 X10^6/uL (4.0-5.2); Red Cell Distribution Width 13.2 % (11.6-14.8); White Blood Cell Count 6.3 X10^3/uL (4.5-11.0)
[2023-10-09 05:31] LABS: BUN Creatinine Ratio 18.2 (6-22); Blood Urea Nitrogen 16 mg/dL (7-17); Calcium 8.4 mg/dL (8.4-10.2); Carbon Dioxide 25 mmol/L (22-32); Chloride 106 mmol/L (98-107); Estimated Glomerular Filt Rate > 60 mL/min (>60); Glucose 99 mg/dL (80-110); HEMOLYSIS < 15 (0-50); Sodium 135 mmol/L (137-145)
[2023-10-09] MEDS: LORazepam 2 MG/ML INJ 0.25 MG IV (07:45)
--- NOTE | 2023-10-09 08:24 | PM.PN.1 ---
Subjective Subjective Interval history: Patient seen this morning. Eating breakfast. at bedside. I asked the patient if she knew what was done yesterday and she did not. I asked her to guess where she had had surgery and she could not. I asked her if she could feel anything out of the ordinary in her right hip and she said she could not. She is not currently reporting any significant pain Exam Vital Signs (past 8 hours): - 10/09/23 04:00 Temperature 97.3 F L Pulse Rate 69 Respiratory Rate 14 Blood Pressure 115/62 Pulse Oximetry 100 Oxygen Flow Rate 1 Fraction of Inspired Oxygen 24 SaO2/FiO2 Ratio 387 Oxygen Delivery Method Nasal Cannula Oxygen Flow Rate 1 Narrative Exam Narrative: Right lower extremity: Dressing clean dry and intact. Flexes and extends hallux and ankle. Sensation intact to light touch in L2 through S1 nerve distributions. Flexes and extends knee Objective Labs 10/09/23 04:49 10/09/23 04:49 Labs: Laboratory Results - last 24 hr 10/08/23 10/08/23 10/09/23 09:15 09:22 04:49 WBC 7.1 6.3 RBC 3.46 L 3.05 L Hgb 11.7 L 10.3 L Hct 33.9 L 30.1 L MCV 98.0 98.7 MCH 33.7 33.8 MCHC 34.4 34.3 RDW 13.0 13.2 Plt Count 190 144 L Neut % (Auto) 77.8 H 73.2 Lymph % (Auto) 12.9 L 17.2 L [place] % (Auto) 8.5 7.6 Eos % (Auto) 0.2 L 1.5 L Baso % (Auto) 0.6 0.5 Neut # (Auto) 5500 4600 Lymph # (Auto) 900 L 1100 [place] # (Auto) 600 500 Eos # (Auto) 0 100 Baso # (Auto) 0 0 Sodium 136 L 135 L Potassium 4.2 4.0 Chloride 107 106 Carbon Dioxide 25 25 BUN 18 H 16 Creatinine 1.02 0.88 Estimated GFR 54 L > 60 BUN/Creatinine Ratio 17.6 18.2 Glucose 113 H 99 Calcium 8.9 8.4 Blood Type B Positive Antibody Screen Negative Crossmatch See Detail PFSH Social History household members: spouse Smoking Status: Never smoker Assessment & Plan Assessment and plan (1) Fracture of femoral neck, right: Status: Acute Plan Status post right hip hemiarthroplasty for femoral neck fracture 10/08/2023. Patient is significantly demented. She has no pain. In order to minimize sedating medications I would recommend no opioids unless she begins complaining of severe right hip pain. She was confused overnight but did not become agitated. I anticipate she is going to eventually need a discharge to a penitentiary facility. She is weight-bearing as tolerated. She does not need to be told to comply with anterior hip precautions because she isn't going to be able to remember them. If it is possible to get her to use a walker that would be preferable. She will need to follow up with our clinic in 2 weeks for wound check. Her dressing should remain in place until that time but it will likely be necessary to send her with spare Aquacel dressings as she is eventually going to get confused and remove the [address] Occupational therapy and physical therapy have been ordered. Quality VTE Deep Vein Thrombosis/Pulmonary Embolism Present on Admission: No
[2023-10-09 08:46] VITALS: BP 127/61; PULSE 87; RESP 20; TEMP 36.1; O2SAT 96
--- NOTE | 2023-10-09 09:00 | CM.DANOTE ---
Addendum entered by Irma White R.N. 10/09/23 13:27: Faxed PASSR over to Kathleen, PASSR coordinator, to review, had hospital sign for hospital exemption. Addendum entered by Irma White R.N. 10/09/23 11:32: Sent referral over to [facility], spoke to Maria L in admissions, she will look for fax. She is not familiar with insurances. She will send an email to her staff. Addendum entered by Irma White R.N. 10/09/23 11:03: Met with patient's son, Danny. He has concerns about his dad and mother, and his dad being able to care for her. Patient does have dementia. She will be working with P.T. Stated, they both live in a large home on [address] with multiple stairs, but are loners, and have not wanted to move. He is aware that his dad can make his own decisions, but is hard when he is working hard to care for her. They have both been for about 64 years. He would like to have some options. such as assisted living facilities that he can help look into for the future. Spouse, Suhail, also in the room. Gave them the Senior Resource Book, and marked some of the assisted living facilities, such as [facility] and [facility]. Also, gave the care home list, let them know that this DC Probate Clerk will attempt [facility], but will have to see if they can accept under her insurance, and if she will work with P.T. Will go ahead and initiate the referral. Original Note: DCP: Case received, EMR reviewed and met with patient. Spouse, Mango (goes by Suhail), was at bedside. Introduced self and role. Was able to obtain information regarding patient's baseline activity level prior to her hospitalization. DCP assessment completed with information currently available. Patient is an 83 year old female who admitted on 10-07, in the am, to the care of the hospitalist team. PCP: None, patient is [employer], nikki. Payer: confirmed: [employer] Medicare. Patient came to the hospital via air lift helicopter from [facility] due to a ground level fall that occurred at home. Patient had tripped while going down the stairs. She then complained of right hip pain. Patient was noted to have acute right femoral neck fracture. Patient has hip surgery yesterday, she has not yet been up with therapy. Patient has history of dementia as well. Met with patient and spouse, Suhail, who was at bedside. Patient is pleasant, some confusion noted. Confirmed that they both reside on [facility]. They have several stairs in the home. Patient no longer drives, uses no DME. Patient does not have a primary care provider, spouse indicated she is [employer]. He did indicate that he hopes that she can go home, but if she needs to go to a care home facility, she has been to [facility] before. Let him know that this will depend upon if they accept her insurance, she has [employer] Medicare. Patient will not qualify for home health if she does not have a primary care provider. P: DCP to continue to follow. Will have to see how she does with P.T. Barriers will be living on the [facility], and the multi stairs at home. Can still go ahead and send the referral to [facility]. Irma White RN/Tanning Solution Maker Discharge Planning/Care Management CM Discharge Assessment Start: 10/09/23 08:55 Freq: Status: Active Protocol: Document 10/09/23 08:55 (Rec: 10/09/23 08:59 [id number]) Discharge Planning Assessment Assigned Learning Support Teacher Irma White Tanning Solution Maker Advance Directives? No History Provided By Patient,Family Member Prior Living Arrangements House Household Members spouse Type of transporation used prior to Relies on Others admit Independent with ADL's Yes Is patient alert and oriented? To self and place, Needs Assistance With Meal Prep,Home Chores / Shopping Caregiver for Another No Patient/Family Preference Fdc Facility,Home with Home Health Comment Discussed both with spouse in the room. Barriers to Discharge Yes Comment Patient has some dementia, they live on [facility] with multiple stairs. Discharge Plan Fdc Facility Transportation Arrangement Facility, if patient is able to go home, then, home health, would need to be [facility], since they are the only agency that goes to the [facility]. Referrals Initiated Other Additional Comment Will go ahead and send referral to [facility]. If patient plan is home with home health There are presigned face to : Has signed face to face form been face forms available. completed? If patient plan is SNF: Has PASSR been No: Will attempt to work on completed? this today. SNF/HH Preference They prefer [facility], patient has been there before. Whiteboard Updated in Patient Room with Yes name and ext. # of Learning Support Teacher Review Status In Process
--- NOTE | 2023-10-09 09:42 | PC.NURSE ---
Addendum entered by Julisa Beckett R.N. 10/09/23 18:08: Ativan did not seem to work for patient after it was given. Haldol was given around 1500 and patient has been sleeping soundly. Addendum entered by Julisa Beckett R.N. 10/09/23 16:39: was just given 2mg of iv haldol around 1500 and patient is sleeping soundly. in room and watching television. Patient has finally calmed down. Addendum entered by Julisa Beckett R.N. 10/09/23 15:09: Patient just pulled out her allen catheter, with balloon completely full of saline. No bleeding noted. She Addendum entered by Julisa Beckett R.N. 10/09/23 14:05: Patient given 0.5mg of iv ativan and this has helped her calm down a small amount. Sent out of room as he needed a break. Carlos Alberto is patients son and he is sitting with her at this time. Things are a bit better now, is sitting in the waiting room. Original Note: Patient is alert and oriented x1. She is familiar with her and son. Given 0.25mg of iv ativan this morning as patient was trying to get up and pulling at her allen catheter and ivs. She did pull out her iv this am and a new one was started to her r.fa. Patient practices restoration science faith and does not take any medications at home. Offered aspirin and stool softner, she does not want to take this as of right now. Will check back again at a later time. She has an aquacel dressing to her r.anterior hip that is cdi. Patient is visiting with her and son at this time.
--- NOTE | 2023-10-09 10:16 | PC.NURSE ---
Requested by Pt's Nurse to restart IV. 20guage angio placed right forearm without difficulty. Lynne. well by Pt. This nurse spoke with Pt's son as well. Son is concerned about parental situation and doesn't want to cause more stress on Pt's spouse while at the same time trying assist where he can. Called C.M. to fill them in on conversation.
[2023-10-09] MEDS: LORazepam 2 MG/ML INJ 0.5 MG IV (13:28)
--- NOTE | 2023-10-09 13:47 | P.PN_ITS ---
Subjective Subjective Interval history: Overnight patient removed IVs with agitation. Was given IV ativan. Per and son, patient has had declining memory over the past few years, with increasing confusion and multiple falls. Patient denies pain this morning, slightly agitated and wants to go home. Exam Vital Signs (past 8 hours): - 10/09/23 08:46 Temperature 96.9 F L Pulse Rate 87 Respiratory Rate 20 Blood Pressure 127/61 Pulse Oximetry 96 Oxygen Flow Rate 0 Fraction of Inspired Oxygen 24 SaO2/FiO2 Ratio 387 Oxygen Delivery Method Nasal Cannula Oxygen Flow Rate 0 Narrative Exam Narrative: GEN: anxious, alert oriented to name but not location or date. HEENT: moist mucous membranes, PERRL NECK: trachea midline, no JVD CV: regular rate and rhythm, no murmurs PULM: clear bilaterally ABD: soft, nontender, nondistended, no organomegaly EXT: warm and well perfused with no edema NEURO: awake, alert, oriented to name only. Objective Labs 10/09/23 04:49 10/09/23 04:49 Labs: Laboratory Results - last 24 hr 10/08/23 10/09/23 09:22 04:49 WBC 6.3 RBC 3.05 L Hgb 10.3 L Hct 30.1 L MCV 98.7 MCH 33.8 MCHC 34.3 RDW 13.2 Plt Count 144 L Neut % (Auto) 73.2 Lymph % (Auto) 17.2 L [place] % (Auto) 7.6 Eos % (Auto) 1.5 L Baso % (Auto) 0.5 Neut # (Auto) 4600 Lymph # (Auto) 1100 [place] # (Auto) 500 Eos # (Auto) 100 Baso # (Auto) 0 Sodium 135 L Potassium 4.0 Chloride 106 Carbon Dioxide 25 BUN 16 Creatinine 0.88 Estimated GFR > 60 BUN/Creatinine Ratio 18.2 Glucose 99 Calcium 8.4 Blood Type B Positive Antibody Screen Negative Crossmatch See Detail [facility] Social History household members: spouse Smoking Status: Never smoker Assessment & Plan Assessment & Plan narrative: # Acute slightly displaced right femoral neck fracture after ground-level fall, pathologic due to osteoporosis - s/p surgical management on 10/08/23 - continue PT/OT as tolerated. - will be complicated by cognitive impairment which is suspected #likely dementia with behavioral disturbance - has had declining cognition over the past few years per family. - start seroquel given overnight agitation - patient has fear of provider / medical establishment at baseline. #acute blood loss anemia - Hg to 10.3 today, likely due to surgery. Continue to monitor with daily cbc. No signs or symptoms of active bleeding currently. Code:Full, surrogate is patient's son Dispo: inpatient, dispo location is unclear at this time. Likely SNF will be needed, but unclear if patient will be agreeable. Additional history obtained via discussion with patient's son, spouse, bedside staff and discussed with case management as well to formulate the above assessment and plan. DVT: ASA BID for 6 weeks after orthopedics interventions. Time Spent With Patient Time with patient: 50 to 69 minutes with 50% spent counseling/coordinating care Quality VTE Deep Vein Thrombosis/Pulmonary Embolism Present on Admission: No
[2023-10-09] MEDS: HALOPERIDOL 5 MG/ML VIAL 2 MG IV ×3 (15:14→22:23)
--- NOTE | 2023-10-09 15:18 | PT.IIE ---
Current Diagnoses Fracture of unspecified part of neck of right femur, initial encounter for closed fracture (10/07/23) Surgery Performed Operation Date: 10/08/23 14:30 Actual Procedures p marlo Hip Arthroplasty/Anterior Approach(Right) - Lon Huang MD Physical Therapy Inpatient Evaluation/Re-Eval M1 PT/OT-IP Prior Functional Status Start: 10/09/23 16:37 Freq: NEEDED Status: Active Protocol: Document 10/09/23 15:18 DLM (Rec: 10/09/23 17:05 DLM [id number]) Medical Review Prior Functional Status Medical History Reviewed Yes Diet/Fluid Consistency Regular Communication speech is clear, hx of dementia Mobility and Gait Independent without device. Activities of Daily Living and IADL's Independent with basic ADL's. Spouse helps with many chores at home. Prior Functional Level (Other details) Her Spouse reports she used a FWW in the past after a LE fracture. The house is on [facility]. It is a 3-story home. The stairs have rails. You enter the house on the middle level then go up or down one level. From the garage there can be as many as 40 stairs. Social History Household Members spouse Living Arrangements House Number of Floors (Floors) 3 or More Floors Number of Stairs To Enter/Railing? 3 +1 steps with rail Employment Status Retired Additional Social History Comment Pt can not provide any baseline information. M2 PT-IP Current Condition Start: 10/09/23 16:37 Freq: NEEDED Status: Active Protocol: Document 10/09/23 15:18 DLM (Rec: 10/09/23 17:05 DL [id number]) Physical Therapy Current Condition Current Condition Evaluation Date 10/09/23 Treatment Diagnosis right femur fx s/p anterior SUE 10/08/23 Onset Date 10/07/23 M3 PT-IP Subjective Start: 10/09/23 16:37 Freq: NEEDED Status: Active Protocol: Document 10/09/23 15:18 DLM (Rec: 10/09/23 17:05 DL [id number]) Subjective Physical Therapy Visit Type Type Initial Evaluation Visit Start Time 14:30 Visit Stop Time 15:18 Notes 48 Number of DRY HOUSE ATTENDANT Visits 0 Physical Therapy Visit Comments Patient Comments Pt is very confused Patient Goals Her family wants her to get better and return home Therapy Pain Assessment Pain When Pain Assessed During Mobility Pain Present Pain Present Pain Reported Location Right Hip Scale Used Pt can not rate Description Aching,With Movement Pain Behaviors Facial Grimacing,Wincing Pain Management Techniques Re-positioning M4 PT-IP Mobility and Gait Start: 10/09/23 16:37 Freq: NEEDED Status: Active Protocol: Document 10/09/23 15:18 DLM (Rec: 10/09/23 17:05 DLM [id number]) PT-Bed Mobility Assessment Supine to Sit Supine to Sit Moderate Assistance Sit to Supine Sit to Supine Moderate Assistance,Maximum Assistance Scooting Scooting to Edge of Bed Standby Assistance PT-Transfer Assessment Sit to and From Stand Sit to and from Stand Minimal Assistance,Moderate Assistance Equipment Transfer Assistive Device Front Wheeled Walker Transfers Transfer Destination Bed,Chair Transfer Technique Stand Step Pivot Transfer Ability Level of Assist Moderate Assistance,Use of Upper Extremities Comments Mobility Comments Pt does not like to use the FWW and it is difficult to get her to keep her hands on the FWW, she attempts to push the FWW away and more around it. Pt pulled out her catheter during this visit. She is very difficult to redirect. She can follow simple instructions about 30% of the time. Pt does look for something to hold onto with UE's to manage her right LE pain. Pt got up to the recliner but unable to leave her there due to pt very unsafe at this time. Pt used the bedside commode to urinate per her request to go the bathroom with a small amount of urine passed after she pulled out the allen catheter. Pt returned to bed after activity for safety. Gait Assessment Gait Gait Assistance Required: Minimum Assistance,Moderate Assistance Distance (Feet) 2 Assistive Devices Assistive Device Front Wheeled Walker Gait Deviations General Gait Pattern Antalgic,Decreased Stride Length,Step-to Gait Factors Limiting Gait Function Factors Limiting Gait Function Decreased Activity Tolerance, Difficulty Following Directions,Pain,Poor Balance, Poor Safety Awareness Comments Gait Comments She is very difficult to keep inside of the fWW for gait. She is able to take a few steps with UE support on the FWW. She is unsafe during gait because she stops to reach for the floor and pulls at objects in the room. Stair Climbing Assessment Comments Stair Climbing Comments she has many stairs at home PT-Balance Assessment Sitting Balance and Reactions Static Sitting Balance Ability Good Dynamic Sitting Balance Ability Good Standing Balance and Reactions Static Standing Balance Ability Fair Dynamic Standing Balance Ability Fair Device Used FWW M5 PT-IP Objective Assessments Start: 10/09/23 16:37 Freq: NEEDED Status: Active Protocol: Document 10/09/23 15:18 DLM (Rec: 10/09/23 17:05 DL [id number]) Orientation Orientation/Cognition Level of Alertness Alert Orientation Name Safety Awareness Decreased Safety Awareness Memory Description Short Term Impaired,Usp Impaired Comments she is very confused, she gets agitated and angry but Not combative, she has difficulty following instructions, she attemps unsafe activities, unable to reason with her to change activity Gross Range of Motion Upper Extremity ROM Assessment Within Functional Limits Lower Extremity ROM Assessment Within Functional Limits Impairments pain right LE, did not attempt hip extension due to right SUE with anterior approach Strength Upper Extremity Strength Assessment Within Functional Limits Lower Extremity Strength Assessment Right Impaired Comments Strength Comments pt can not participate in MMT due to confusion, she is moving all extremites functionally but right LE is weaker than left with physical signs of pain Coordination Assessment Gross Coordination Gross Coordination WNL Sensation Assessment Comments Sensation Comments unable to test, no indications of sensory changes when feet or hands are touched Muscle Tone Muscle Tone WNL Yes M6 PT-IP Treatment Start: 10/09/23 16:37 Freq: NEEDED Status: Active Protocol: Document 10/09/23 15:18 DLM (Rec: 10/09/23 17:05 [facility] [id number]) Physical Therapy Treatment Education Education Provided Safety Other Treatments Other Treatment Performed Her and Son observed most of this treatment session and answered their questions after this visit. Her reports she is much more confused than baseline. M7 PT-IP Assessment and Plan Start: 10/09/23 16:37 Freq: NEEDED Status: Active Protocol: Document 10/09/23 15:18 DLM (Rec: 10/09/23 17:05 [facility] [id number]) PT Summary Assessment and Plan Potential Rehabilitation Potential Fair Status of Condition at Evaluation Evolving Summary Impairments Pain,ROM,Strength,Balance, Cognition,Bed Mobility, Transfers,Gait,Activity Tolerance Assessment Summary Jazlyn is alert and resting in bed with her family visiting with her. She was admitted after a fall at home where she suffered right femur fx. She underwent right SUE with anterior approach 10/08/23. She is very confused today and has difficulty following directions. She is easily distracted and figits frequently. She pulled her allen catheter out during this therapy session. She was able to stand with the FWW and transfer to a chair and to the bedside commode. She is very unsafe due to her cognitive deficits. She has functional weakness and pain in her right LE during mobility. She is resistant to using the FWW this visit but did use it for short periods of time with assistance. She needs physical assist of one person for all mobility. Recommend a second person be present when pt up moving to manage her fall risks due to her confusion and difficulty following instructions. Pt returned to bed after activity. Recommend SNF rehab at discharge to assist with her functional recovery. I am hopeful that her confusion will decrease as her medical condition improves to improve her participation in therapy. Goals Bed Mobility Goal Standby Assistance Transfer Goal Contact Guard Assistance,Front Wheeled Walker Gait Goal Contact Guard Assistance,Front Wheel Walker Gait Distance 100 feet Days to Meet Goals 5 Frequency of Treatment Frequency Of Treatment Twice a Day Treatment Plan Physical Therapy Treatment Plan Bed Mobility Training,Transfer Training,Gait Training, Therapeutic Exercise,Balance Retraining,Post Op Education, Discharge Planning,Hot or Cold Pack,Neuromuscular Re-ed Precautions Other Precautions Surgeon notes indicate NO anterior precautions needed Weight Bearing Status Weight Bearing Status Weight Bear as Tolerated Allowed Weight Bearing Amount (enter % WBAT right LE with fWW (as she or #) (%) will use the FWW per surgeon) . Recommendations To Nursing Amount of Assist Needed 2 Person Assist Discharge Recommendations PT Discharge Recommendations SNF Rehab Other Discharge Recommendations She needs 2 person assist to manage her fall risks associated with her confusion. She could transport by wheelchair if she has one-to- one caregiver transport with her due to her confusion. She may need stretcher transport if her confusion prevents her from getting into the car. Transportation Needs at Discharge Private Vehicle,Stretcher/ Ambulance
[2023-10-09 19:51] VITALS: BP 139/77; PULSE 118; RESP 16; TEMP 36.8; O2SAT 95
[2023-10-09 20:32] VITALS: TEMP 37.3
[2023-10-09] MEDS: ACETAMINOPHEN 325 MG TABLET 650 MG PO (20:32)
[2023-10-09 21:14] VITALS: TEMP 37.1
--- NOTE | 2023-10-09 22:16 | PC.NURSE ---
cigarette examiner: 1899 update: Patient is alert & oriented to self. Awoke at 1899 and became agitated, attempting to get out of bed although weak & unsteady. Pt stating that she needs to urinate, attempted w/ BSC and bedpan multiple times with no output. Bladder scanned showing 75cc. 2mg IV Haldol given for agitation which appeared to calm patient down. When asked if she was in pain patient stated yes although declined pain medicine. Patient is tachycardic in the 130's, notified MD Chiu, tele ordered & placed. Otherwise VSS. (Suhail) at the bedside. Fall precautions in place. 2099 update: Attempted to give patient 2100 medications, patient able to swallow 1 Tylenol pill w/ water, but began to pocket pills in mouth & spit them out. Attempted again w/ applesauce, no success. MD Chiu notified. 2199 update: Patient increasingly agitated, stating I have no idea what's going on, attempting to get out of bed frequently. Difficult to reorient even w/ assistance from . 2mg IV Haldol given. Will continue to monitor.
[2023-10-10] VITALS (7 sets, daily range): BP systolic 92–164; BP diastolic 47–82; PULSE 78–107; RESP 16–19; TEMP 36.1–36.9; O2SAT 95–97
[2023-10-10 05:09] LABS: Add Manual Diff / Slide Review NO; Basophils Absolute Auto 0 /uL (0-100); Basophils Percent Auto 0.3 % (0-2); Eosinophils Absolute Auto 100 /uL (0-450); Eosinophils Percent Auto 1.1 % (2-4); Hemoglobin 10.3 g/dL (12.0-16.0); Lymphocytes Absolute Auto 700 /uL (1100-4500); Lymphocytes Percent Auto 11.6 % (25-40); Mean Corpuscular HGB Conc 34.3 % (30-36); Mean Corpuscular Hemoglobin 33.8 PG (26-34); Mean Corpuscular Volume 98.4 fL (80-100); Monocytes Absolute Auto 400 /uL (0-900); Monocytes Percent Auto 6.9 % (3-14); Neutrophils Absolute Auto 4900 /uL (1500-7000); Neutrophils Percent Auto 80.1 % (50-75); Platelet Count 138 X10^3/uL (150-400); Red Blood Cell Count 3.05 X10^6/uL (4.0-5.2); Red Cell Distribution Width 13.1 % (11.6-14.8); White Blood Cell Count 6.1 X10^3/uL (4.5-11.0)
[2023-10-10 05:17] LABS: Blood Urea Nitrogen 16 mg/dL (7-17); Calcium 8.7 mg/dL (8.4-10.2); Carbon Dioxide 26 mmol/L (22-32); Chloride 105 mmol/L (98-107); Estimated Glomerular Filt Rate > 60 mL/min (>60); Glucose 101 mg/dL (80-110); HEMOLYSIS < 15 (0-50); Potassium 3.8 mmol/L (3.4-5.1); Sodium 136 mmol/L (137-145)
--- NOTE | 2023-10-10 09:23 | P.PN_ITS ---
Subjective Subjective Date Patient Seen: 10/10/23 Time Patient Seen: 09:15 Interval history: Patient is found resting comfortably. She has not able to answer direct questions secondary to dementia Her is present today. She says she was doing better this morning. She states that she has still not aware that she is in a hospital. She does acknowledge her right hip hurts. She does not recall how she hurt herself. She feels her mental status has improved over the last few days. Exam Vital Signs (past 8 hours): - 10/10/23 06:38 Temperature 98.4 F Pulse Rate 105 H Respiratory Rate 19 Blood Pressure 137/82 Pulse Oximetry 97 Oxygen Flow Rate 0 Fraction of Inspired Oxygen 24 SaO2/FiO2 Ratio 387 Oxygen Delivery Method Room Air Oxygen Flow Rate 0 Narrative Exam Narrative: Gross sensation present over the right lower extremity. Able to actively dorsiflex and plantar flex against resistance but not on command. Pain over the right greater hip region. No increased pain for warmth noted along the posterior calf or thigh. Objective Labs 10/10/23 04:29 10/10/23 04:29 Labs: Laboratory Results - last 24 hr 10/10/23 04:29 WBC 6.1 RBC 3.05 L Hgb 10.3 L Hct 30.0 L MCV 98.4 MCH 33.8 MCHC 34.3 RDW 13.1 Plt Count 138 L Neut % (Auto) 80.1 H Lymph % (Auto) 11.6 L [place] % (Auto) 6.9 Eos % (Auto) 1.1 L Baso % (Auto) 0.3 Neut # (Auto) 4900 Lymph # (Auto) 700 L [place] # (Auto) 400 Eos # (Auto) 100 Baso # (Auto) 0 Sodium 136 L Potassium 3.8 Chloride 105 Carbon Dioxide 26 BUN 16 Creatinine 0.84 Estimated GFR > 60 BUN/Creatinine Ratio 19.0 Glucose 101 Calcium 8.7 PFSH Social History household members: spouse Smoking Status: Never smoker Assessment & Plan Post-op Postoperative Procedures: Procedures Operation Date: 10/08/23 14:30 Actual Procedure Side Surgeon p marlo Hip Arthroplasty/Anterior Approach Right Lon Huang MD Postoperative day: 2 Postoperative status narrative: Status post right hip hemiarthroplasty for femoral neck fracture 10/08/2023. Patient is significantly demented. She has no pain. She is weight-bearing as tolerated, use a walker that would be preferable. She will need to follow up with our clinic in 2 weeks for wound check. Her dressing should remain in place . Continue to work with occupational therapy and physical therapy. Current plan is to discharge to [facility] for [facility] once transfer has been improved. Time Spent With Patient Time with patient: less than 15 minutes Quality VTE Deep Vein Thrombosis/Pulmonary Embolism Present on Admission: No
[2023-10-10] MEDS: ACETAMINOPHEN 325 MG TABLET 650 MG PO (09:51)
[2023-10-10] MEDS: DOCUSATE 100 MG CAPSULE PO ×2 (09:51→22:26)
[2023-10-10] MEDS: ASPIRIN EC 81 MG TABLET PO ×2 (09:51→22:26)
--- NOTE | 2023-10-10 10:37 | PT.IPTN ---
Current Diagnoses Fracture of unspecified part of neck of right femur, initial encounter for closed fracture (10/07/23) Surgery Performed Operation Date: 10/08/23 14:30 Actual Procedures p marlo Hip Arthroplasty/Anterior Approach(Right) - Lon Huang MD Physical Therapy Treatment Note M2 PT-IP Current Condition Start: 10/09/23 16:37 Freq: NEEDED Status: Active Protocol: Document 10/09/23 15:18 DLM (Rec: 10/09/23 17:05 DLM [id number]) Physical Therapy Current Condition Current Condition Evaluation Date 10/09/23 Treatment Diagnosis right femur fx s/p anterior SUE 10/08/23 Onset Date 10/07/23 M3 PT-IP Subjective Start: 10/09/23 16:37 Freq: NEEDED Status: Active Protocol: Document 10/10/23 10:37 AW (Rec: 10/10/23 11:17 AW [id number]) Subjective Physical Therapy Visit Type Type Treatment Note Visit Start Time 10:22 Visit Stop Time 10:37 Notes Co-tx with OT for safety due to impulsivity noted in initial evaluation. Number of FORGING ENGINEER Visits 0 Physical Therapy Visit Comments Patient Comments Pt is very sleepy but alertness improves with mobility Therapy Pain Assessment Pain When Pain Assessed During Mobility FLACC Pain Scale Face Occasional grimace/frown Legs Normal position; relaxed Activity Quiet, moves easily Cry No cry (awake or asleep) Consolability Reassurable with touch FLACC Total 2 M4 PT-IP Mobility and Gait Start: 10/09/23 16:37 Freq: NEEDED Status: Active Protocol: Document 10/10/23 10:37 AW (Rec: 10/10/23 11:17 AW [id number]) PT-Bed Mobility Assessment Supine to Sit Supine to Sit Minimal Assistance,Head of Bed Elevated,Bedrails Scooting Scooting to Edge of Bed Standby Assistance PT-Transfer Assessment Sit to and From Stand Sit to and from Stand Minimal Assistance,2 Person Assistance,Use of Upper Extremities Equipment Transfer Assistive Device Gait Belt,Front Wheeled Walker Transfers Transfer Destination Chair,Bedside Commode Transfer Technique Stand Step Pivot Transfer Ability Level of Assist Minimal Assistance,Moderate Assistance,1 Person Assistance ,2 Person Assistance,Use of Upper Extremities Comments Mobility Comments Pt is quite sleepy but wakes and very agreeably works with therapies Gait Assessment Gait Gait Assistance Required: Minimum Assistance Distance (Feet) 2 Able to Maintain Weight Bearing Status Yes During Gait Assistive Devices Assistive Device Gait Belt,Front Wheeled Walker Gait Deviations General Gait Pattern Antalgic,Decreased Stride Length,Step-to Gait Factors Limiting Gait Function Factors Limiting Gait Function Decreased Activity Tolerance, Difficulty Following Directions,Pain,Poor Balance, Poor Safety Awareness Comments Gait Comments Pt uses FWW but needs assist to move her hands to most stable placement on the handles. She does not appear to be in a significant amount of pain with weightbearing ( FLACC 2). Stair Climbing Assessment Comments Stair Climbing Comments Stairs are a barrier to home entry. PT-Balance Assessment Sitting Balance and Reactions Static Sitting Balance Ability Good Dynamic Sitting Balance Ability Good Standing Balance and Reactions Static Standing Balance Ability Fair Dynamic Standing Balance Ability Fair Device Used FWW M5 PT-IP Objective Assessments Start: 10/09/23 16:37 Freq: NEEDED Status: Active Protocol: Document 10/09/23 15:18 DLM (Rec: 10/09/23 17:05 DLM [id number]) Orientation Orientation/Cognition Level of Alertness Alert Orientation Name Safety Awareness Decreased Safety Awareness Memory Description Short Term Impaired,Relay Operator Impaired Comments she is very confused, she gets agitated and angry but Not combative, she has difficulty following instructions, she attemps unsafe activities, unable to reason with her to change activity Gross Range of Motion Upper Extremity ROM Assessment Within Functional Limits Lower Extremity ROM Assessment Within Functional Limits Impairments pain right LE, did not attempt hip extension due to right SUE with anterior approach Strength Upper Extremity Strength Assessment Within Functional Limits Lower Extremity Strength Assessment Right Impaired Comments Strength Comments pt can not participate in MMT due to confusion, she is moving all extremites functionally but right LE is weaker than left with physical signs of pain Coordination Assessment Gross Coordination Gross Coordination WNL Sensation Assessment Comments Sensation Comments unable to test, no indications of sensory changes when feet or hands are touched Muscle Tone Muscle Tone WNL Yes M6 PT-IP Treatment Start: 10/09/23 16:37 Freq: NEEDED Status: Active Protocol: Document 10/10/23 10:37 AW (Rec: 10/10/23 11:17 AW [id number]) Physical Therapy Treatment Education Education Provided Precautions,Weight Bearing Status,Safety M7 PT-IP Assessment and Plan Start: 10/09/23 16:37 Freq: NEEDED Status: Active Protocol: Document 10/10/23 10:37 AW (Rec: 10/10/23 11:17 AW [id number]) PT Summary Assessment and Plan Potential Rehabilitation Potential Fair Summary Impairments Pain,ROM,Strength,Balance, Cognition,Bed Mobility, Transfers,Gait,Activity Tolerance Progress Towards Goals Progressing Toward Goals,Slow Progress - Other Assessment Summary Jazlyn is much less impulsive today. In fact, she looks to therapists for guidance on how to move and follows one to two step directions well. Bed mobility and transfers improved in terms of level of assist today. She seems willing to move and does not limit her mobility due to pain . Pt may have the potential to work toward a home discharge (with 21/03 assist and home PT) IF she can live on the software developer mid level of the home and is able to navigate three steps to enter. If this is not an option, PT continues to recommend SNF. Goals Bed Mobility Goal Standby Assistance Transfer Goal Contact Guard Assistance,Front Wheeled Walker Gait Goal Contact Guard Assistance,Front Wheel Walker Gait Distance 100 feet Days to Meet Goals 5 Frequency of Treatment Frequency Of Treatment Twice a Day Treatment Plan Physical Therapy Treatment Plan Bed Mobility Training,Transfer Training,Gait Training, Therapeutic Exercise,Balance Retraining,Post Op Education, Discharge Planning,Hot or Cold Pack,Neuromuscular Re-ed Other Recommendations and Next Treatment progress ambulation distance Focus and trial a step, as tolerated Precautions Other Precautions Surgeon notes indicate NO anterior precautions needed Weight Bearing Status Weight Bearing Status Weight Bear as Tolerated Allowed Weight Bearing Amount (enter % WBAT right LE with fWW (as she or #) (%) will use the FWW per surgeon) . Recommendations To Nursing Amount of Assist Needed 2 Person Assist Discharge Recommendations PT Discharge Recommendations Home with 21/03 Assist Available,Home Health,SNF Rehab,Home vs SNF Transportation Needs at Discharge Private Vehicle,Wheelchair/ Cabulance
--- NOTE | 2023-10-10 10:40 | OT.IP.EVAL ---
Current Diagnoses Fracture of unspecified part of neck of right femur, initial encounter for closed fracture (10/07/23) Surgery Performed Operation Date: 10/08/23 14:30 Actual Procedures p marlo Hip Arthroplasty/Anterior Approach(Right) - Lon Huang MD Occupational Therapy Inpatient Evaluation/Re-Eval M1 PT/OT-IP Prior Functional Status Start: 10/09/23 16:37 Freq: NEEDED Status: Active Protocol: Document 10/10/23 14:16 CGR (Rec: 10/10/23 14:35 CGR [id number]) Medical Review Prior Functional Status Medical History Reviewed Yes Diet/Fluid Consistency Regular Communication speech is clear, hx of dementia Mobility and Gait Independent without device. Activities of Daily Living and IADL's Independent with basic ADL's. Spouse helps with many chores at home. Prior Functional Level (Other details) Her Spouse reports she used a FWW in the past after a LE fracture. The house is on [facility]. It is a 3-story home. The stairs have rails. You enter the house on the middle level then go up or down one level. From the garage there can be as many as 40 stairs. Social History Household Members spouse Living Arrangements House Number of Floors (Floors) Two Floors Number of Stairs To Enter/Railing? 3 onto deck then 1-2 up to door to come in from the back. Pt is then on the bottom level of the home and does not need to go upstairs for anything. Home Environment Standard Height Toilet,Tub/ Shower Doors Employment Status Retired Additional Social History Comment Discussed homeset up at length with and son. Pt is able to get into the bottom floor with ~3 +2 steps and the can stay on the bottom level. Recommended ramp for entry. They don't have DME at this time but plan to get the DME recommeded for pt's needs. M2 OT-IP Current Condition Start: 10/10/23 14:16 Freq: Status: Active Protocol: Document 10/10/23 14:16 CGR (Rec: 10/10/23 14:35 CGR [id number]) Occupational Therapy Current Condition Current Condition Evaluation Date 10/10/23 Treatment Diagnosis GLF with R femur fx, 10/08 anterior SUE, dementia Diagnosis Onset Date 10/07/23 Post Operative Precautions Anterior Hip Precautions No Hip Extension,No Hip External Rotation Weight Bearing Status Weight Bearing Status Weight Bear as Tolerated M3 OT- IP Subjective and Pain Start: 10/10/23 14:16 Freq: Status: Active Protocol: Document 10/10/23 14:16 CGR (Rec: 10/10/23 14:35 CGR [id number]) OT- Subjective Occupational Therapy Visit Type Type Initial Evaluation Visit Start Time 10:21 Visit Stop Time 10:40 Notes An additional ~30 minutes for disussing home set up and recommendations with family in the family waiting room. Partial co-treat with P.T. OT Pain Assessment Pain When Pain Assessed At Rest Pain Present Pain Present Denied Pain M4 OT- IP ADL's Start: 10/10/23 14:16 Freq: Status: Active Protocol: Document 10/10/23 14:16 CGR (Rec: 10/10/23 14:35 CGR [id number]) OT [id number] Comments OT Self-Feeding Comments not meal time OT ADL-Grooming Comments OT Grooming Comments not performed OT ADL-Oral Care Comments Oral Care Comments not performed OT ADL-Dressing General Eval Lower Body Dressing Ability Total Assistance Areas Needing Assistance Socks OT ADL-Toileting General Evaluation Toileting Ability Minimal Assistance Areas Needing Assistance Manage Clothing Comments OT Toileting Comments [place] [facility] [place]. Pt did not void. OT ADL-Bathing Comments OT Bathing Comments not performed M5 OT- IP IADL's Start: 10/10/23 14:16 Freq: Status: Active Protocol: Document 10/10/23 14:16 CGR (Rec: 10/10/23 14:35 CGR [id number]) OT-Instrumental Activities of Daily Living Deficits IADL Deficits Identified Deficits Home Safety Awareness Awareness of Need for Assistance at Home Decreased Awareness Ability to Problem Solve Emergency Unable to Problem Solve Situations Medication Management Medication Management Caregiver Administers Money Management Money Management Caregiver Provides Assistance Meal Preparation Meal Preparation Caregiver Provides Assist Planner/Scheduler Planner/Scheduler Caregiver Provides Assist Driving Driving Comments Pt does not drive. M6 OT- IP Functional Cognition Start: 10/10/23 14:16 Freq: Status: Active Protocol: Document 10/10/23 14:16 CGR (Rec: 10/10/23 14:35 CGR [id number]) Cognitive Factors Limiting Selfcare Function Cognitive Ability Level of Alertness Alert,Confusional State Patient Orientation Name Attention Span Ability Unable to Focus,Unable to Sustain Attention Ability to Follow Commands Able to Follow One Step Commands with Increased Time, Able to Follow One Step Commands with Repetition Cognitive Comments Cognitive Assessment Comments Pt has a baseline of dementia. OT- Vision and Hearing OT- Hearing Assessment OT- Hearing Assessment WFL OT- Vision Assessment Visual Acuity WFL Visual Attentiveness WFL M7 OT- IP Mobility and Balance Start: 10/10/23 14:16 Freq: Status: Active Protocol: Document 10/10/23 14:16 CGR (Rec: 10/10/23 14:35 CGR [id number]) OT- Bed Mobility Assessment Supine to Sit Supine to Sit Assist Minimal Assistance,Head of Bed Elevated Scooting Scooting to Edge of Bed Minimal Assistance OT-Transfer Assessment Sit to and From Stand Sit to and from Stand Minimal Assistance,2 Person Assistance Transfers Transfer Ability Minimal Assistance,Moderate Assistance,1 Person Assistance Technique Transfer Destination Bed,Bedside Commode,Chair Transfer Technique Stand Step Pivot Devices Transfer Assistive Devices Gait Belt,Front Wheeled Walker Comments Mobility Comments Pt was able to stand and take steps with min to mod a using the walker. OT- Balance Assessment Sitting Balance and Reactions Static Sitting Balance Ability Good Dynamic Sitting Balance Ability Good M8 OT- IP Objective Assessments Start: 10/10/23 14:16 Freq: Status: Active Protocol: Document 10/10/23 14:16 CGR (Rec: 10/10/23 14:35 CGR [id number]) OT Gross Range of Motion Upper Extremity Range of Motion Assessment Right Impaired ROM Impairments R shld limited with pain. OT Strength Upper Extremity Strength Assessment Within Functional Limits Comments Strength Comments 5-/5, R shld not tested OT- Coordination Assessment Upper Extremity Finger to Nose Test Within Functional Limits Finger Tapping Test Within Functional Limits OT-Muscle Tone Assessment Muscle Tone WNL Yes OT Sensation Assessment Edema Edema Absent M9 OT- IP Assessment and Plan Start: 10/10/23 14:16 Freq: Status: Active Protocol: Document 10/10/23 14:16 CGR (Rec: 10/10/23 14:35 CGR [id number]) OT Summary Assessment and Plan Potential Rehabilitation Potential Good Analytic Complexity at Evaluation High Summary OT Impairments Pain,Range of Motion,Balance, Functional Cognition, Functional Mobility,Grooming, Dressing,Toileting,Bathing, Toilet Transfers,Shower Transfers,Activity Tolerance Progress Towards Goals Progressing Toward Goals,Slow Progress due to Pain,Slow Progress due to Activity Tolerance,Slow Progress due to Cognition Assessment Summary Pt presents as a high complexity evaluation s/p admit for fall with R femur fx , pt underwent 2/10 anterior SUE and is WBAT. Pt was able to stand and transfer in todays session. Pt is lethargic and needed to be woken up a few times in the session. Given pt's mental status, pt would do best in her home environment if family can care for her. Discussed home set up and equipment recommendations at length with and son and provided with a listing. Recommend home vs SNF because of dementia, however, pt would also be appropriate for SNF if needed. Goals Self-Feeding Goal Independent Grooming Goal Independent Dressing Goal Independent Toileting Goal Independent Bathing Goal Independent Toilet Transfer Goal Independent Shower Transfer Goal Independent Days to Meet Goals 20 Frequency of Treatment Frequency Of Treatment Once a Day Treatment Plan OT Treatment Plan ADL Training,Functional Cognition Training,Functional Mobility,Patient/Family Education,Discharge Planning Other Treatment Recommendations and Next ADLs seated or standing, Treatment Focus family training. Discharge Recommendations OT Discharge Recommendations Home with 24/ Assist Available,Home vs SNF Home Equipment Needs tub transfer bench toilet heightner [facility] [place] [facility] gait belt transport w/c grab bars installed in shower ramp to enter home Transportation Needs at Discharge Private Vehicle
--- NOTE | 2023-10-10 15:49 | PT.IPTN ---
Current Diagnoses Fracture of unspecified part of neck of right femur, initial encounter for closed fracture (10/07/23) Surgery Performed Operation Date: 10/08/23 14:30 Actual Procedures p marlo Hip Arthroplasty/Anterior Approach(Right) - Lon Huang MD Physical Therapy Treatment Note M2 PT-IP Current Condition Start: 10/09/23 16:37 Freq: NEEDED Status: Active Protocol: Document 10/09/23 15:18 DLM (Rec: 10/09/23 17:05 DLM [id number]) Physical Therapy Current Condition Current Condition Evaluation Date 10/09/23 Treatment Diagnosis right femur fx s/p anterior SUE 10/08/23 Onset Date 10/07/23 M3 PT-IP Subjective Start: 10/09/23 16:37 Freq: NEEDED Status: Active Protocol: Document 10/10/23 15:49 AW (Rec: 10/10/23 16:11 AW [id number]) Subjective Physical Therapy Visit Type Type Treatment Note Visit Start Time 15:31 Visit Stop Time 15:49 Number of SILVERWARE SUPERVISOR Visits 0 Physical Therapy Visit Comments Patient Comments Pt is easily directable, very willing to participate. Therapy Pain Assessment Pain When Pain Assessed At Rest Pain Present Pain Present Pain Reported FLACC Pain Scale Face Occasional grimace/frown Legs Uneasy, restless, tense Activity Quiet, moves easily Cry Moans/whimpers/complains Consolability Reassurable with touch FLACC Total 4 M4 PT-IP Mobility and Gait Start: 10/09/23 16:37 Freq: NEEDED Status: Active Protocol: Document 10/10/23 15:49 AW (Rec: 10/10/23 16:11 AW [id number]) PT-Transfer Assessment Sit to and From Stand Sit to and from Stand Minimal Assistance,Moderate Assistance,1 Person Assistance ,Use of Upper Extremities Equipment Transfer Assistive Device Gait Belt,Front Wheeled Walker Transfers Transfer Destination Chair Transfer Technique Stand Step Pivot Transfer Ability Level of Assist Minimal Assistance,1 Person Assistance,Use of Upper Extremities Comments Mobility Comments Pt demonstrates good motor planning with sit to stand but needs min/mod assist for full extension. She lines up well with the chair and has good eccentric control Gait Assessment Gait Gait Assistance Required: Minimum Assistance Distance (Feet) 30 Able to Maintain Weight Bearing Status Yes During Gait Assistive Devices Assistive Device Gait Belt,Front Wheeled Walker Gait Deviations General Gait Pattern Antalgic,Decreased Stride Length,Step-to Gait Factors Limiting Gait Function Factors Limiting Gait Function Decreased Activity Tolerance, Difficulty Following Directions,Pain,Poor Balance, Poor Safety Awareness Comments Gait Comments Pt uses FWW with no external cues but needs min assist for balance due to pain. FLACC 4 this afternoon (compared with FLACC 2 this AM). Stair Climbing Assessment Comments Stair Climbing Comments Plan to work on stairs at next visit. PT-Balance Assessment Sitting Balance and Reactions Static Sitting Balance Ability Good Dynamic Sitting Balance Ability Good Standing Balance and Reactions Static Standing Balance Ability Fair Dynamic Standing Balance Ability Fair Device Used FWW M5 PT-IP Objective Assessments Start: 10/09/23 16:37 Freq: NEEDED Status: Active Protocol: Document 10/09/23 15:18 DLM (Rec: 10/09/23 17:05 DLM [id number]) Orientation Orientation/Cognition Level of Alertness Alert Orientation Name Safety Awareness Decreased Safety Awareness Memory Description Short Term Impaired,Usp Impaired Comments she is very confused, she gets agitated and angry but Not combative, she has difficulty following instructions, she attemps unsafe activities, unable to reason with her to change activity Gross Range of Motion Upper Extremity ROM Assessment Within Functional Limits Lower Extremity ROM Assessment Within Functional Limits Impairments pain right LE, did not attempt hip extension due to right SUE with anterior approach Strength Upper Extremity Strength Assessment Within Functional Limits Lower Extremity Strength Assessment Right Impaired Comments Strength Comments pt can not participate in MMT due to confusion, she is moving all extremites functionally but right LE is weaker than left with physical signs of pain Coordination Assessment Gross Coordination Gross Coordination WNL Sensation Assessment Comments Sensation Comments unable to test, no indications of sensory changes when feet or hands are touched Muscle Tone Muscle Tone WNL Yes M6 PT-IP Treatment Start: 10/09/23 16:37 Freq: NEEDED Status: Active Protocol: Document 10/10/23 15:49 AW (Rec: 10/10/23 16:11 AW [id number]) Physical Therapy Treatment Education Education Provided Safety Other Treatments Other Treatment Performed Coordinated caregiver training to take place at 0900 tomorrow. M7 PT-IP Assessment and Plan Start: 10/09/23 16:37 Freq: NEEDED Status: Active Protocol: Document 10/10/23 15:49 AW (Rec: 10/10/23 16:11 AW [id number]) PT Summary Assessment and Plan Potential Rehabilitation Potential Fair Summary Impairments Pain,ROM,Strength,Balance, Cognition,Bed Mobility, Transfers,Gait,Activity Tolerance Progress Towards Goals Progressing Toward Goals,Slow Progress - Other Assessment Summary Jazlyn is cooperative and uses FWW this afternoon without cues. Her balance was affected by pain but she was able to progress to functional gait with min assist using FWW. PT recommending discharge home with assist and home PT IF she is able to manage stair navigation (goal added today). If stairs remain a barrier or if pt is not able to stay on the entry analyst, would recommend SNF but this PT feels pt would fare better at home with family support. Goals Bed Mobility Goal Standby Assistance Transfer Goal Contact Guard Assistance,Front Wheeled Walker Gait Goal Contact Guard Assistance,Front Wheel Walker Gait Distance 100 feet Other Goals - up/down 3 steps using railing and FRONT OFFICE DEVELOPER/min A from family Days to Meet Goals 5 Frequency of Treatment Frequency Of Treatment Twice a Day Treatment Plan Physical Therapy Treatment Plan Bed Mobility Training,Transfer Training,Gait Training, Therapeutic Exercise,Balance Retraining,Post Op Education, Discharge Planning,Hot or Cold Pack,Neuromuscular Re-ed Other Recommendations and Next Treatment caregiver training, stairs Focus Precautions Other Precautions Surgeon notes indicate NO anterior precautions needed Weight Bearing Status Weight Bearing Status Weight Bear as Tolerated Allowed Weight Bearing Amount (enter % WBAT right LE with fWW (as she or #) (%) will use the FWW per surgeon) . Recommendations To Nursing Amount of Assist Needed 1 Person Assist Discharge Recommendations PT Discharge Recommendations Home with 21/03 Assist Available,Home Health,Home vs SNF Equipment Needed for Home Before May benefit from access to a Discharge wheelchair Transportation Needs at Discharge Private Vehicle,Wheelchair/ Cabulance
--- NOTE | 2023-10-10 16:21 | PM.PN.1 ---
Subjective Subjective Interval history: Improved slightly but remains confused, forgets she is in the hospital, refuses some medications. Exam Vital Signs (past 8 hours): - 10/10/23 09:48 10/10/23 13:00 Temperature 98.0 F 97.0 F L Pulse Rate 98 H 98 H Respiratory Rate 16 16 Blood Pressure 121/79 92/47 L Pulse Oximetry 95 96 Oxygen Flow Rate 0 0 Fraction of Inspired Oxygen 24 SaO2/FiO2 Ratio 387 Oxygen Delivery Method Room Air Oxygen Flow Rate 0 Narrative Exam Narrative: GEN: anxious, alert oriented to name but not location or date. HEENT: moist mucous membranes, PERRL NECK: trachea midline, no JVD CV: regular rate and rhythm, no murmurs PULM: clear bilaterally ABD: soft, nontender, nondistended, no organomegaly EXT: warm and well perfused with no edema NEURO: awake, alert, oriented to name only. Objective Labs 10/10/23 04:29 10/10/23 04:29 Labs: Laboratory Results - last 24 hr 10/10/23 04:29 WBC 6.1 RBC 3.05 L Hgb 10.3 L Hct 30.0 L MCV 98.4 MCH 33.8 MCHC 34.3 RDW 13.1 Plt Count 138 L Neut % (Auto) 80.1 H Lymph % (Auto) 11.6 L [place] % (Auto) 6.9 Eos % (Auto) 1.1 L Baso % (Auto) 0.3 Neut # (Auto) 4900 Lymph # (Auto) 700 L [place] # (Auto) 400 Eos # (Auto) 100 Baso # (Auto) 0 Sodium 136 L Potassium 3.8 Chloride 105 Carbon Dioxide 26 BUN 16 Creatinine 0.84 Estimated GFR > 60 BUN/Creatinine Ratio 19.0 Glucose 101 Calcium 8.7 PFSH Social History household members: spouse Smoking Status: Never smoker Assessment & Plan Assessment & Plan narrative: # Acute slightly displaced right femoral neck fracture after ground-level fall, pathologic due to osteoporosis - s/p surgical management on 10/08/23 - continue PT/OT as tolerated. - will be complicated by cognitive impairment which is suspected - she did better with PT, possible discharge home with home health with continued improvement. #likely dementia with behavioral disturbance - has had declining cognition over the past few years per family. - start seroquel given overnight agitation, however patient refusing oral medicaitons - patient has fear of provider / medical establishment at baseline. #acute blood loss anemia - Hg stable at 10.3. likely blood loss due to surgery. Continue to monitor with daily cbc. No signs or symptoms of active bleeding currently. Code:Full, surrogate is patient's son Dispo: inpatient, dispo location is unclear at this time. Patient will not likely go to SNF, is doing better with PT so hopeful for home in 1-2 days with home health. Complicated home health with no PCP but spouse and case management working on arranging PCP follow up. Additional history obtained via discussion with patient's son, spouse, bedside staff and discussed with case management as well to formulate the above assessment and plan. DVT: ASA BID for 6 weeks after orthopedics interventions. Time Spent With Patient Time with patient: 50 to 69 minutes with 50% spent counseling/coordinating care Quality VTE Deep Vein Thrombosis/Pulmonary Embolism Present on Admission: No
--- NOTE | 2023-10-10 17:02 | CM.DPNOTE ---
DCP Note ROLLER SKATER reviewed EMR. Per provider, pt has declined cognition, is agitated, paranoid, and is refusing meds. Per PT/OT, did better with therapies today and believe she would do better at home with HH and family support. From Maxine at , agreed to hold onto referral. Are not officially saying no, but they have concerns about accepting pt. ROLLER SKATER met with spouse, son, and pt various times throughout the day. Are agreeable to HH but are working on getting home equipment set up. Sharath Carcamo ([phone]) is main contact. Sharath Carcamo can stay with pt for a few weeks after dc. Reviewed barrier to HH acceptance is lack of PCP. ROLLER SKATER provided list of PCPs in area but spouse/son are going to attempt to get her started with spouses PCP. ROLLER SKATER coordinated with [facility] at [facility] . Reports clinically/insurance upton it looks like they could accept her- but there are some concerns about the lack of PCP. Her email states that if f/u with PCP is on POC for HH on the orders, they could start services. if pt were to miss PCP appointment, provider here would be responsible for continuing to sign HH orders. Plan: ideally, home with [facility] and family support. Barriers include: establishing with a PCP for [facility] to be able to accept, getting equip arranged at home with additional barrier being getting equip to [facility]. CM team will continue to follow closely. SHANKAR Ramirez
--- NOTE | 2023-10-10 18:59 | PC.NURSE ---
Pt's , Suhail, called out to this RN to come into room immediately to look at something. Suhail looked concerned. This RN followed pt's into room and Suhail was pointing at the ground stating, look at that! This RN looked and saw a couple of hair ties on the floor, and began to pick them up. Suhail stated, there's bugs crawling all over the floor and around the hair tie! This RN assured pt's that there are not bugs on the floor and this RN proceeded to double check with pt's that he was in fact seeing bugs crawl on the floor. Suhail stated that he does see them and was getting agitated that this RN could not see them as well. This RN expressed concern to pt's and reported to battery recharger.
[2023-10-10] MEDS: QUETIAPINE 25 MG TABLET PO (22:26)
[2023-10-11 03:00] VITALS: PULSE 95; RESP 18; TEMP 36.3; O2SAT 96
[2023-10-11 05:10] LABS: Add Manual Diff / Slide Review NO; Basophils Absolute Auto 0 /uL (0-100); Basophils Percent Auto 0.6 % (0-2); Eosinophils Absolute Auto 100 /uL (0-450); Eosinophils Percent Auto 1.3 % (2-4); Hematocrit 29.4 % (36-46); Lymphocytes Absolute Auto 800 /uL (1100-4500); Lymphocytes Percent Auto 12.2 % (25-40); Mean Corpuscular HGB Conc 34.1 % (30-36); Mean Corpuscular Hemoglobin 33.3 PG (26-34); Mean Corpuscular Volume 97.7 fL (80-100); Monocytes Absolute Auto 400 /uL (0-900); Monocytes Percent Auto 6.9 % (3-14); Neutrophils Absolute Auto 5100 /uL (1500-7000); Platelet Count 164 X10^3/uL (150-400); Red Blood Cell Count 3.01 X10^6/uL (4.0-5.2); Red Cell Distribution Width 13.1 % (11.6-14.8); White Blood Cell Count 6.4 X10^3/uL (4.5-11.0)
[2023-10-11 05:20] LABS: BUN Creatinine Ratio 21.5 (6-22); Blood Urea Nitrogen 17 mg/dL (7-17); Calcium 8.7 mg/dL (8.4-10.2); Carbon Dioxide 24 mmol/L (22-32); Chloride 104 mmol/L (98-107); Estimated Glomerular Filt Rate > 60 mL/min (>60); Glucose 89 mg/dL (80-110); HEMOLYSIS < 15 (0-50); Potassium 3.8 mmol/L (3.4-5.1); Sodium 137 mmol/L (137-145)
--- NOTE | 2023-10-11 07:55 | P.PN_ITS ---
Subjective Subjective Date Patient Seen: 10/11/23 Time Patient Seen: 07:30 Interval history: Patient is found lying comfortably in her bed. She says she has some pain over her right hip. Denies any numbness or tingling down her right leg. Exam Vital Signs (past 8 hours): - 10/11/23 03:00 Temperature 97.4 F L Pulse Rate 95 H Respiratory Rate 18 Pulse Oximetry 96 Oxygen Flow Rate 0 Fraction of Inspired Oxygen 24 SaO2/FiO2 Ratio 387 Oxygen Delivery Method Room Air Oxygen Flow Rate 0 Narrative Exam Narrative: Patient is found lying comfortably in her bed. Tenderness to palpation over the right greater trochanter region. No increase in pain to palpation along the posterior calf or thigh. Able to actively dorsiflex and plantar flex at the right ankle upon instruction. Chest Chest: normal inspection of the chest and normal palpation of entire chest wall Objective Labs 10/11/23 04:29 10/11/23 04:29 Labs: Laboratory Results - last 24 hr 10/11/23 04:29 WBC 6.4 RBC 3.01 L Hgb 10.0 L Hct 29.4 L MCV 97.7 MCH 33.3 MCHC 34.1 RDW 13.1 Plt Count 164 Neut % (Auto) 79.0 H Lymph % (Auto) 12.2 L [place] % (Auto) 6.9 Eos % (Auto) 1.3 L Baso % (Auto) 0.6 Neut # (Auto) 5100 Lymph # (Auto) 800 L [place] # (Auto) 400 Eos # (Auto) 100 Baso # (Auto) 0 Sodium 137 Potassium 3.8 Chloride 104 Carbon Dioxide 24 BUN 17 Creatinine 0.79 Estimated GFR > 60 BUN/Creatinine Ratio 21.5 Glucose 89 Calcium 8.7 PFSH Social History household members: spouse Smoking Status: Never smoker Assessment & Plan Post-op Postoperative Procedures: Procedures Operation Date: 10/08/23 14:30 Actual Procedure Side Surgeon p marlo Hip Arthroplasty/Anterior Approach Right Lon Huang MD Postoperative day: 3 Postoperative status narrative: Patient is presents with mild dementia. She has mild pain. Postoperative plan narrative: She is weight-bearing as tolerated, use a walker that would be preferable. She will need to follow up with our clinic in 2 weeks for wound check. Her dressing should remain in place . Continue to work with occupational therapy and physical therapy. Current plan is to discharge home with home health or to rehabilitation facility. Time Spent With Patient Time with patient: less than 15 minutes Quality VTE Deep Vein Thrombosis/Pulmonary Embolism Present on Admission: No
[2023-10-11 08:00] VITALS: BP 111/58; PULSE 78; RESP 16; TEMP 36.4; O2SAT 96
--- NOTE | 2023-10-11 09:00 | PT.IPTN ---
Current Diagnoses Fracture of unspecified part of neck of right femur, initial encounter for closed fracture (10/07/23) Surgery Performed Operation Date: 10/08/23 14:30 Actual Procedures p marlo Hip Arthroplasty/Anterior Approach(Right) - Lon Huang MD Physical Therapy Treatment Note M2 PT-IP Current Condition Start: 10/09/23 16:37 Freq: NEEDED Status: Active Protocol: Document 10/09/23 15:18 DLM (Rec: 10/09/23 17:05 DLM [id number]) Physical Therapy Current Condition Current Condition Evaluation Date 10/09/23 Treatment Diagnosis right femur fx s/p anterior SUE 10/08/23 Onset Date 10/07/23 M3 PT-IP Subjective Start: 10/09/23 16:37 Freq: NEEDED Status: Active Protocol: Document 10/11/23 09:51 TS (Rec: 10/11/23 10:07 TS [id number]) Subjective Physical Therapy Visit Type Type Treatment Note Visit Start Time 09:00 Visit Stop Time 09:45 Notes Family present for caregiver training. Number of ASSEMBLY LEAD PERSON Visits 1 Physical Therapy Visit Comments Patient Comments Pt found resting in bed, does not recall why she is in hospital, denies pain in RLE. Pt is agreeable to PT. Therapy Pain Assessment Pain When Pain Assessed At Rest Pain Present Pain Present Denied Pain M4 PT-IP Mobility and Gait Start: 10/09/23 16:37 Freq: NEEDED Status: Active Protocol: Document 10/11/23 09:51 TS (Rec: 10/11/23 10:07 TS [id number]) PT-Bed Mobility Assessment Supine to Sit Supine to Sit Minimal Assistance,Head of Bed Elevated,Bedrails Scooting Scooting to Edge of Bed Standby Assistance PT-Transfer Assessment Sit to and From Stand Sit to and from Stand Minimal Assistance,Moderate Assistance,1 Person Assistance ,Use of Upper Extremities Equipment Transfer Assistive Device Gait Belt,Front Wheeled Walker Transfers Transfer Destination Chair Transfer Technique Squat Pivot Transfer Ability Level of Assist Moderate Assistance,1 Person Assistance,Use of Upper Extremities Comments Mobility Comments BP in supine 125/63 prior to mobility. Supine to sit Harrison for uprighting trunk and RLE assistance from son to EOB. She sat EOB ~3mins SBA with BUE support and good core act. Sit to stand x3 Harrison/ModA for retrolean in standing with use of FWW. She ambulated in room ~30 with FWW CGA/Harrison for balance from son. Pt had x1 posterior LOB requiring Harrison. She performed steps x3 with SHEET METAL WORKER HELPER from spouse and son Harrison with cues for step sequencing. Pt sat back EOB. Son requested on how to transfer pt if she is tired/weak later in evening. Pt performed squat pivot ModA to chair with cues for transfer sequencing. Pt was left in chair, chair alarm on, all needs met, RN notified. Gait Assessment Gait Gait Assistance Required: Contact Guard Assist,Minimum Assistance Distance (Feet) 30 Able to Maintain Weight Bearing Status Yes During Gait Assistive Devices Assistive Device Gait Belt,Front Wheeled Walker Gait Deviations General Gait Pattern Antalgic,Decreased Stride Length,Step-to Gait Factors Limiting Gait Function Factors Limiting Gait Function Decreased Activity Tolerance, Difficulty Following Directions,Pain,Poor Balance, Poor Safety Awareness Comments Gait Comments See mobility comments Stair Climbing Assessment Evaluation Level of Assist On Stairs Minimal Assistance,2 Person Assistance Devices Stair Climbing Assistive Devices Left Railing,Right Railing Technique/Endurance Stair Climbing Direction Ascend and Descend Stair Climbing Technique Step to Step Number of Steps Climbed 3 Comments Stair Climbing Comments See mobility comments PT-Balance Assessment Sitting Balance and Reactions Static Sitting Balance Ability Good Dynamic Sitting Balance Ability Good Standing Balance and Reactions Static Standing Balance Ability Fair Dynamic Standing Balance Ability Fair Device Used FWW M5 PT-IP Objective Assessments Start: 10/09/23 16:37 Freq: NEEDED Status: Active Protocol: Document 10/09/23 15:18 DL (Rec: 10/09/23 17:05 [facility] [id number]) Orientation Orientation/Cognition Level of Alertness Alert Orientation Name Safety Awareness Decreased Safety Awareness Memory Description Short Term Impaired,Mcc Impaired Comments she is very confused, she gets agitated and angry but Not combative, she has difficulty following instructions, she attemps unsafe activities, unable to reason with her to change activity Gross Range of Motion Upper Extremity ROM Assessment Within Functional Limits Lower Extremity ROM Assessment Within Functional Limits Impairments pain right LE, did not attempt hip extension due to right SUE with anterior approach Strength Upper Extremity Strength Assessment Within Functional Limits Lower Extremity Strength Assessment Right Impaired Comments Strength Comments pt can not participate in MMT due to confusion, she is moving all extremites functionally but right LE is weaker than left with physical signs of pain Coordination Assessment Gross Coordination Gross Coordination WNL Sensation Assessment Comments Sensation Comments unable to test, no indications of sensory changes when feet or hands are touched Muscle Tone Muscle Tone WNL Yes M6 PT-IP Treatment Start: 10/09/23 16:37 Freq: NEEDED Status: Active Protocol: Document 10/11/23 09:51 TS (Rec: 10/11/23 10:07 TS [id number]) Physical Therapy Treatment Education Education Provided Safety M7 PT-IP Assessment and Plan Start: 10/09/23 16:37 Freq: NEEDED Status: Active Protocol: Document 10/11/23 09:51 TS (Rec: 10/11/23 10:07 TS [id number]) PT Summary Assessment and Plan Potential Rehabilitation Potential Fair Summary Impairments Pain,ROM,Strength,Balance, Cognition,Bed Mobility, Transfers,Gait,Activity Tolerance Progress Towards Goals Progressing Toward Goals Assessment Summary Elizabeth is making good progress with her mobility. She is Harrison for supine to sit with assist for RLE from son. She performed STS x3 with Harrison /ModA for balance with use of FWW. She continues to ambulate in room short distances before becoming fatigued. She progressed to stairs x3 with x2HHA w/Harrison. PT is recommending home with 21/03 assist and HHPT. Son was instructed in and performed bed mobility, transfers, gait and stairs with pt. Son is gathering all equipment and arranging things at home today . Son would like pt to stay in the hospital one more night. Goals Bed Mobility Goal Standby Assistance Transfer Goal Contact Guard Assistance,Front Wheeled Walker Gait Goal Contact Guard Assistance,Front Wheel Walker Gait Distance 100 feet Other Goals - up/down 3 steps using railing and SHEET METAL WORKER HELPER/min A from Days to Meet Goals 5 Frequency of Treatment Frequency Of Treatment Twice a Day Treatment Plan Physical Therapy Treatment Plan Bed Mobility Training,Transfer Training,Gait Training, Therapeutic Exercise,Balance Retraining,Post Op Education, Discharge Planning,Hot or Cold Pack,Neuromuscular Re-ed Other Recommendations and Next Treatment Progress gait, stairs, Focus transfer. Precautions Other Precautions Surgeon notes indicate NO anterior precautions needed Weight Bearing Status Weight Bearing Status Weight Bear as Tolerated Allowed Weight Bearing Amount (enter % WBAT right LE with fWW (as she or #) (%) will use the FWW per surgeon) . Recommendations To Nursing Amount of Assist Needed 1 Person Assist Discharge Recommendations PT Discharge Recommendations Home with 24 Assist Available,Home Health Equipment Needed for Home Before May benefit from access to a Discharge wheelchair Transportation Needs at Discharge Private Vehicle
[2023-10-11] MEDS: DOCUSATE 100 MG CAPSULE PO ×2 (09:50→21:53)
[2023-10-11] MEDS: ASPIRIN EC 81 MG TABLET PO ×2 (09:50→21:52)
[2023-10-11] MEDS: ACETAMINOPHEN 325 MG TABLET 650 MG PO (09:56)
[2023-10-11 12:00] VITALS: BP 105/64; PULSE 65; RESP 16; TEMP 36.3; O2SAT 96
--- NOTE | 2023-10-11 12:00 | PM.PN.1 ---
Subjective Subjective Interval history: Denies pain, no shortness of breath. She is sitting up in a chair and ate without difficulty today. They are eager to try to go home tomorrow if she continues to progress. They [address] on [address] [facility]. Exam Vital Signs (past 8 hours): - 10/11/23 08:00 Temperature 97.6 F Pulse Rate 78 Respiratory Rate 16 Blood Pressure 111/58 L Pulse Oximetry 96 Oxygen Flow Rate 0 Fraction of Inspired Oxygen 24 SaO2/FiO2 Ratio 387 Oxygen Delivery Method Room Air Oxygen Flow Rate 0 Narrative Exam Narrative: NAD, fluent speech. Lungs clear, normal effort. Heart is regular, no murmur. Abdomen is soft, non-tender. No leg edema. Objective Labs 10/11/23 04:29 10/11/23 04:29 Labs: Laboratory Results - last 24 hr 10/11/23 04:29 WBC 6.4 RBC 3.01 L Hgb 10.0 L Hct 29.4 L MCV 97.7 MCH 33.3 MCHC 34.1 RDW 13.1 Plt Count 164 Neut % (Auto) 79.0 H Lymph % (Auto) 12.2 L [place] % (Auto) 6.9 Eos % (Auto) 1.3 L Baso % (Auto) 0.6 Neut # (Auto) 5100 Lymph # (Auto) 800 L [place] # (Auto) 400 Eos # (Auto) 100 Baso # (Auto) 0 Sodium 137 Potassium 3.8 Chloride 104 Carbon Dioxide 24 BUN 17 Creatinine 0.79 Estimated GFR > 60 BUN/Creatinine Ratio 21.5 Glucose 89 Calcium 8.7 PFSH Social History household members: spouse Smoking Status: Never smoker Assessment & Plan Assessment & Plan narrative: [address] [address] Progress Note Patient: Elizabeth Craft Provider: Kaz Pablo D.O. Subjective Subjective Interval history: Improved slightly but remains confused, forgets she is in the hospital, refuses some medications. Exam Vital Signs (past 8 hours): - 10/10/2408:48 10/10/2412:00 Temperature 98.0 F 97.0 F L Pulse Rate 98 H 98 H Respiratory Rate 16 16 Blood Pressure 121/79 92/47 L Pulse Oximetry 95 96 Oxygen Flow Rate 0 0 Fraction of Inspired Oxygen 24 SaO2/FiO2 Ratio 387 Oxygen Delivery Method Room Air Oxygen Flow Rate 0 Narrative Exam Narrative: GEN: anxious, alert oriented to name but not location or date. HEENT: moist mucous membranes, PERRL NECK: trachea midline, no JVD CV: regular rate and rhythm, no murmurs PULM: clear bilaterally ABD: soft, nontender, nondistended, no organomegaly EXT: warm and well perfused with no edema NEURO: awake, alert, oriented to name only. Objective Labs 10/10/23 04:29 10/10/23 04:29 Labs: Laboratory Results - last 24 hr 10/10/23 04:29 WBC 6.1 RBC 3.05 L Hgb 10.3 L Hct 30.0 L MCV 98.4 MCH 33.8 MCHC 34.3 RDW 13.1 Plt Count 138 L Neut % (Auto) 80.1 H Lymph % (Auto) 11.6 L [place] % (Auto) 6.9 Eos % (Auto) 1.1 L Baso % (Auto) 0.3 Neut # (Auto) 4900 Lymph # (Auto) 700 L [place] # (Auto) 400 Eos # (Auto) 100 Baso # (Auto) 0 Sodium 136 L Potassium 3.8 Chloride 105 Carbon Dioxide 26 BUN 16 Creatinine 0.84 Estimated GFR > 60 BUN/Creatinine Ratio 19.0 Glucose 101 Calcium 8.7 PFSH Social History household members: spouse Smoking Status: Never smoker Assessment & Plan # Acute slightly displaced right femoral neck fracture after ground-level fall, pathologic due to osteoporosis. Present on admission and active. - s/p surgical management on 10/08/23 - continue PT/OT as tolerated. - will be complicated by cognitive impairment which is suspected - she did better with PT, possible discharge home with home health with continued improvement. 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 - has had declining cognition over the past few years per family. - start seroquel given overnight agitation, however patient refusing oral medicaitons - patient has fear of provider / medical establishment at baseline. #Acute blood loss anemia, Present on admission and active. - Hg stable at 10.3. likely blood loss due to surgery. Continue to monitor with daily cbc. No signs or symptoms of active bleeding currently. Code:Full, surrogate is patient's son Dispo: inpatient, dispo location is unclear at this time. Patient will not likely go to SNF, is doing better with PT so hopeful for home in 1-2 days with home health. Complicated home health with no PCP but spouse and case management working on arranging PCP follow up. Additional history obtained via discussion with patient's son, spouse, bedside staff and discussed with case management as well to formulate the above assessment and plan. DVT: ASA BID for 6 weeks after orthopedics interventions. Time Spent With Patient Time with patient: 30 to 49 minutes with 50% spent counseling/coordinating care Quality VTE Deep Vein Thrombosis/Pulmonary Embolism Present on Admission: No
--- NOTE | 2023-10-11 13:30 | OT.IP.TRT ---
Current Diagnoses Fracture of unspecified part of neck of right femur, initial encounter for closed fracture (10/07/23) Surgery Performed Operation Date: 10/08/23 14:30 Actual Procedures p marlo Hip Arthroplasty/Anterior Approach(Right) - Lon Huang MD Occupational Therapy Treatment Note M2 OT-IP Current Condition Start: 10/10/23 14:16 Freq: Status: Active Protocol: Document 10/10/23 14:16 CGR (Rec: 10/10/23 14:35 CGR [id number]) Occupational Therapy Current Condition Current Condition Evaluation Date 10/10/23 Treatment Diagnosis GLF with R femur fx, 10/08 anterior SUE, dementia Diagnosis Onset Date 10/07/23 Post Operative Precautions Anterior Hip Precautions No Hip Extension,No Hip External Rotation Weight Bearing Status Weight Bearing Status Weight Bear as Tolerated M3 OT- IP Subjective and Pain Start: 10/10/23 14:16 Freq: Status: Active Protocol: Document 10/11/23 14:21 [facility] (Rec: 10/11/23 14:33 [facility] [id number]) OT- Subjective Occupational Therapy Visit Type Type Treatment Note Visit Start Time 13:30 Visit Stop Time 14:08 Occupational Therapy Visit Comments Patient Comments Pt and her in the room . Patient/Caregiver Goals TO go home. OT Pain Assessment Pain When Pain Assessed At Rest Pain Present Pain Present Denied Pain M4 OT- IP ADL's Start: 10/10/23 14:16 Freq: Status: Active Protocol: Document 10/11/23 14:21 [facility] (Rec: 10/11/23 14:33 [facility] [id number]) OT [id number] Comments OT Self-Feeding Comments not meal time OT ADL-Grooming Comments OT Grooming Comments not performed OT ADL-Dressing General Eval Lower Body Dressing Ability Standby Assistance Areas Needing Assistance Socks Comments OT Dressing Comments Able to show pt use of sock aid, however pt able to reach forwards to be able to [place]. doff her socks appropriately. Pointed out anterior precautions for her to be aware of and folder given. Per pt's surgeon states pt does need to comply with anterior precautions as it would be too challenging to follow due to her dementia. OT ADL-Bathing Comments OT Bathing Comments Educated pt's of care of bandage needs for showering . Pt's under the impression that the extra aquacel dressings. Verified with nursing that that is not the case. M5 OT- IP IADL's Start: 10/10/23 14:16 Freq: Status: Active Protocol: Document 10/10/23 14:16 CGR (Rec: 10/10/23 14:35 CGR [id number]) OT-Instrumental Activities of Daily Living Deficits IADL Deficits Identified Deficits Home Safety Awareness Awareness of Need for Assistance at Home Decreased Awareness Ability to Problem Solve Emergency Unable to Problem Solve Situations Medication Management Medication Management Caregiver Administers Money Management Money Management Caregiver Provides Assistance Meal Preparation Meal Preparation Caregiver Provides Assist Tuber Machine Operator Tuber Machine Operator Caregiver Provides Assist Driving Driving Comments Pt does not drive. M6 OT- IP Functional Cognition Start: 10/10/23 14:16 Freq: Status: Active Protocol: Document 10/11/23 14:21 [facility] (Rec: 10/11/23 14:33 [facility] [id number]) Cognitive Factors Limiting Selfcare Function Cognitive Comments Cognitive Assessment Comments Pt has a baseline of dementia. M7 OT- IP Mobility and Balance Start: 10/10/23 14:16 Freq: Status: Active Protocol: Document 10/10/23 14:16 [facility] (Rec: 10/10/23 14:35 [facility] [id number]) OT- Bed Mobility Assessment Supine to Sit Supine to Sit Assist Minimal Assistance,Head of Bed Elevated Scooting Scooting to Edge of Bed Minimal Assistance OT-Transfer Assessment Sit to and From Stand Sit to and from Stand Minimal Assistance,2 Person Assistance Transfers Transfer Ability Minimal Assistance,Moderate Assistance,1 Person Assistance Technique Transfer Destination Bed,Bedside Commode,Chair Transfer Technique Stand Step Pivot Devices Transfer Assistive Devices Gait Belt,Front Wheeled Walker Comments Mobility Comments Pt was able to stand and take steps with min to mod a using the walker. OT- Balance Assessment Sitting Balance and Reactions Static Sitting Balance Ability Good Dynamic Sitting Balance Ability Good M8 OT- IP Objective Assessments Start: 10/10/23 14:16 Freq: Status: Active Protocol: Document 10/10/23 14:16 CGR (Rec: 10/10/23 14:35 [facility] [id number]) OT Gross Range of Motion Upper Extremity Range of Motion Assessment Right Impaired ROM Impairments R shld limited with pain. OT Strength Upper Extremity Strength Assessment Within Functional Limits Comments Strength Comments 5-/5, R shld not tested OT- Coordination Assessment Upper Extremity Finger to Nose Test Within Functional Limits Finger Tapping Test Within Functional Limits OT-Muscle Tone Assessment Muscle Tone WNL Yes OT Sensation Assessment Edema Edema Absent M9 OT- IP Assessment and Plan Start: 10/10/23 14:16 Freq: Status: Active Protocol: Document 10/11/23 14:21 [facility] (Rec: 10/11/23 14:33 [facility] [id number]) OT Summary Assessment and Plan Potential Rehabilitation Potential Good Analytic Complexity at Evaluation High Summary Progress Towards Goals Progressing Toward Goals Assessment Summary Pt feeling better and able to go over ADL needs with pt's and also of anterior precautions with the so aware. Pt to go home with assist and home health. Goals Self-Feeding Goal Independent Grooming Goal Independent Dressing Goal Independent Toileting Goal Independent Bathing Goal Standby Assistance Toilet Transfer Goal Independent Shower Transfer Goal Independent Days to Meet Goals 15 Frequency of Treatment Frequency Of Treatment Once a Day Treatment Plan OT Treatment Plan ADL Training,Functional Cognition Training,Functional Mobility,Patient/Family Education,Discharge Planning Discharge Recommendations OT Discharge Recommendations Home with 21/03 Assist Available Home Equipment Needs tub transfer bench toilet heightner [facility] FFW gait belt transport w/c grab bars installed in shower ramp to enter home Transportation Needs at Discharge Private Vehicle
--- NOTE | 2023-10-11 14:31 | PM.PN.1 ---
Subjective Subjective Interval history: She is doing well, she denies pain. No shortness of breath. Exam Vital Signs (past 8 hours): - 10/11/23 08:00 Temperature 97.6 F Pulse Rate 78 Respiratory Rate 16 Blood Pressure 111/58 L Pulse Oximetry 96 Oxygen Flow Rate 0 Fraction of Inspired Oxygen 24 SaO2/FiO2 Ratio 387 Oxygen Delivery Method Room Air Oxygen Flow Rate 0 Narrative Exam Narrative: NAD, fluent speech. Lungs are clear, normal effort. Heart is regular, no murmur. Abdomen is soft, non-tender. Extremities are free of edema. Objective Labs 10/11/23 04:29 10/11/23 04:29 Labs: Laboratory Results - last 24 hr 10/11/23 04:29 WBC 6.4 RBC 3.01 L Hgb 10.0 L Hct 29.4 L MCV 97.7 MCH 33.3 MCHC 34.1 RDW 13.1 Plt Count 164 Neut % (Auto) 79.0 H Lymph % (Auto) 12.2 L [place] % (Auto) 6.9 Eos % (Auto) 1.3 L Baso % (Auto) 0.6 Neut # (Auto) 5100 Lymph # (Auto) 800 L [place] # (Auto) 400 Eos # (Auto) 100 Baso # (Auto) 0 Sodium 137 Potassium 3.8 Chloride 104 Carbon Dioxide 24 BUN 17 Creatinine 0.79 Estimated GFR > 60 BUN/Creatinine Ratio 21.5 Glucose 89 Calcium 8.7 PFSH Social History household members: spouse Smoking Status: Never smoker Assessment & Plan Assessment & Plan narrative: # Acute slightly displaced right femoral neck fracture after ground-level fall, pathologic due to osteoporosis, present on admission and improving. - s/p surgical management on 10/08/23 - continue PT/OT as tolerated. - will be complicated by cognitive impairment which is suspected - she did better with PT, possible discharge home with home health with continued improvement. # Probable dementia with behavioral disturbance, present on admission and active. - has had declining cognition over the past few years per family. - patient has fear of provider / medical establishment at baseline. # Acute blood loss anemia, present on admission and active. - Hg stable at 10.3. likely blood loss due to surgery. Continue to monitor with daily cbc. No signs or symptoms of active bleeding currently. Code:Full, surrogate is patient's son Dispo: Home with HH in 1 day. DVT: ASA BID for 6 weeks after orthopedics interventions. Time Spent With Patient Time with patient: 30 to 49 minutes with 50% spent counseling/coordinating care Quality VTE Deep Vein Thrombosis/Pulmonary Embolism Present on Admission: No
--- NOTE | 2023-10-11 14:33 | CM.DPNOTE ---
DCP Note DYNAMOMETER TESTER reviewed EMR. Per provider in morning rounds, pt medically cleared to dc tomorrow. DYNAMOMETER TESTER met with pt, spouse, and son Carlos Alberto (cell [phone] email [email or web address]) in room. Pt agreeable to allowing CM team to contact son/give out son's phone number to use as POC for scheduling. Carlos Alberto reports getting equip for the home set up. Pt primarily quiet throughout dcp conversation but appeared confused. Spouse reports wanting to get her set up with PCP, Dr. Faustin, for HH to be able to follow her care. DYNAMOMETER TESTER provided information for caregivers on [place]. DYNAMOMETER TESTER answered questions about POA and provided son with POA paperwork. Family requested RN/PT/OT/PRINTED CIRCUIT BOARD PANELS PLATER/DYNAMOMETER TESTER (for long term care social worker planning). DYNAMOMETER TESTER gave son business card with contact information. DYNAMOMETER TESTER emailed often with son throughout the day (son requested email due to spotty services on [place]). Son reports pt is set up with an appointment with Dr. Faustin on Friday 10/13 at 3pm. DYNAMOMETER TESTER updated [facility] at [facility]. Agreed to accept pending PCP appointment. If pt misses PCP appointment, will not be able to follow. DYNAMOMETER TESTER updated RN/provider. Plan: anticipate dc tomorrow with spouse/son. PCP appt tuesday at 3pm with Dr. Faustin. [facility] to follow. Likely will need priority boarding pass? CM team will continue to follow closely. SHANKAR Ramirez
--- NOTE | 2023-10-11 14:43 | PT.IPTN ---
Current Diagnoses Fracture of unspecified part of neck of right femur, initial encounter for closed fracture (10/07/23) Surgery Performed Operation Date: 10/08/23 14:30 Actual Procedures p marlo Hip Arthroplasty/Anterior Approach(Right) - Lon Huang MD Physical Therapy Treatment Note M2 PT-IP Current Condition Start: 10/09/23 16:37 Freq: NEEDED Status: Active Protocol: Document 10/09/23 15:18 DLM (Rec: 10/09/23 17:05 DLM [id number]) Physical Therapy Current Condition Current Condition Evaluation Date 10/09/23 Treatment Diagnosis right femur fx s/p anterior SUE 10/08/23 Onset Date 10/07/23 M3 PT-IP Subjective Start: 10/09/23 16:37 Freq: NEEDED Status: Active Protocol: Document 10/11/23 15:13 TS (Rec: 10/11/23 15:29 TS [id number]) Subjective Physical Therapy Visit Type Type Treatment Note Visit Start Time 14:43 Visit Stop Time 15:13 Number of CULTURE MEDIA LABORATORY ASSISTANT Visits 2 Physical Therapy Visit Comments Patient Comments Pt found resting in chair, spouse in room, reports pain in R hip with mobility, is agreeable to PT. Therapy Pain Assessment Pain When Pain Assessed During Mobility Pain Present Pain Present Pain Reported M4 PT-IP Mobility and Gait Start: 10/09/23 16:37 Freq: NEEDED Status: Active Protocol: Document 10/11/23 15:13 TS (Rec: 10/11/23 15:29 TS [id number]) PT-Bed Mobility Assessment Sit to Supine Sit to Supine Minimal Assistance,1 Person Assistance PT-Transfer Assessment Sit to and From Stand Sit to and from Stand Minimal Assistance,Moderate Assistance,1 Person Assistance ,Use of Upper Extremities Equipment Transfer Assistive Device Gait Belt,Front Wheeled Walker Comments Mobility Comments STS from chair ModA with use of FWW, pt required cues for pushing up from surface of chair with BUE support. She ambulated in room with emerging step thru gait ~40' CGA with use of FWW, pt fatigued and required rest break on bed. She performed STS x2 from bed Harrison for retrolean, pt sidestepped to HOB x5 steps CGA with FWW. Sit to supine into bed Harrison for RLE. She performed ankle pumps , quad sets, glute sets and heel slides x5. pt was left in bed, all needs met. Gait Assessment Gait Gait Assistance Required: Contact Guard Assist,1 Person Assist Distance (Feet) 40 Able to Maintain Weight Bearing Status Yes During Gait Assistive Devices Assistive Device Gait Belt,Front Wheeled Walker Gait Deviations General Gait Pattern Antalgic,Decreased Stride Length,Step-to Gait Factors Limiting Gait Function Factors Limiting Gait Function Decreased Activity Tolerance, Difficulty Following Directions,Pain,Poor Balance, Poor Safety Awareness Comments Gait Comments See mobility comments PT-Balance Assessment Sitting Balance and Reactions Static Sitting Balance Ability Good Dynamic Sitting Balance Ability Good Standing Balance and Reactions Static Standing Balance Ability Fair Dynamic Standing Balance Ability Fair Device Used FWW M5 PT-IP Objective Assessments Start: 10/09/23 16:37 Freq: NEEDED Status: Active Protocol: Document 10/09/23 15:18 DLM (Rec: 10/09/23 17:05 DLM [id number]) Orientation Orientation/Cognition Level of Alertness Alert Orientation Name Safety Awareness Decreased Safety Awareness Memory Description Short Term Impaired,Physician Practice Manager Impaired Comments she is very confused, she gets agitated and angry but Not combative, she has difficulty following instructions, she attemps unsafe activities, unable to reason with her to change activity Gross Range of Motion Upper Extremity ROM Assessment Within Functional Limits Lower Extremity ROM Assessment Within Functional Limits Impairments pain right LE, did not attempt hip extension due to right SUE with anterior approach Strength Upper Extremity Strength Assessment Within Functional Limits Lower Extremity Strength Assessment Right Impaired Comments Strength Comments pt can not participate in MMT due to confusion, she is moving all extremites functionally but right LE is weaker than left with physical signs of pain Coordination Assessment Gross Coordination Gross Coordination WNL Sensation Assessment Comments Sensation Comments unable to test, no indications of sensory changes when feet or hands are touched Muscle Tone Muscle Tone WNL Yes M6 PT-IP Treatment Start: 10/09/23 16:37 Freq: NEEDED Status: Active Protocol: Document 10/11/23 15:13 TS (Rec: 10/11/23 15:29 [id number]) Physical Therapy Treatment Education Education Provided Safety M7 PT-IP Assessment and Plan Start: 10/09/23 16:37 Freq: NEEDED Status: Active Protocol: Document 10/11/23 15:13 TS (Rec: 10/11/23 15:29 [id number]) PT Summary Assessment and Plan Potential Rehabilitation Potential Fair Summary Impairments Pain,ROM,Strength,Balance, Cognition,Bed Mobility, Transfers,Gait,Activity Tolerance Progress Towards Goals Progressing Toward Goals Assessment Summary Elizabeth continues to make some progress with her mobility. She progressed her gait to ~40'CGA with emerging step thru gait with use of FWW . She continues to require ModA/Harrison for STS with use of FWW. She continues to have some retroleaning coming into standing and required cues for upright posture. Spouse was instructed in and performed donning of gait belt and post- op ex intensity and frequency. PT continues to recommending return home with 24/7 assist and HHPT. Goals Bed Mobility Goal Standby Assistance Transfer Goal Contact Guard Assistance,Front Wheeled Walker Gait Goal Contact Guard Assistance,Front Wheel Walker Gait Distance 100 feet Other Goals - up/down 3 steps using railing and PAPER MILL MANAGER/min A from Days to Meet Goals 5 Frequency of Treatment Frequency Of Treatment Twice a Day Treatment Plan Physical Therapy Treatment Plan Bed Mobility Training,Transfer Training,Gait Training, Therapeutic Exercise,Balance Retraining,Post Op Education, Discharge Planning,Hot or Cold Pack,Neuromuscular Re-ed Other Recommendations and Next Treatment Progress gait, stairs, Focus transfer. Precautions Other Precautions Surgeon notes indicate NO anterior precautions needed Weight Bearing Status Weight Bearing Status Weight Bear as Tolerated Allowed Weight Bearing Amount (enter % WBAT right LE with fWW (as she or #) (%) will use the FWW per surgeon) . Recommendations To Nursing Amount of Assist Needed 1 Person Assist Discharge Recommendations PT Discharge Recommendations Home with 24/7 Assist Available,Home Health Equipment Needed for Home Before May benefit from access to a Discharge wheelchair Transportation Needs at Discharge Private Vehicle
[2023-10-11 16:00] VITALS: BP 114/68; PULSE 54; RESP 16; TEMP 36.3; O2SAT 98
[2023-10-11 20:00] VITALS: BP 131/74; PULSE 65; RESP 17; TEMP 36.3; O2SAT 96
[2023-10-11] MEDS: QUETIAPINE 25 MG TABLET PO (21:53)
[2023-10-12] VITALS: BP 120/65; PULSE 75; RESP 16; TEMP 36.7; O2SAT 95
[2023-10-12 04:00] VITALS: BP 125/57; PULSE 89; RESP 17; TEMP 36.9; O2SAT 94
[2023-10-12 05:18] LABS: Add Manual Diff / Slide Review NO; Basophils Absolute Auto 100 /uL (0-100); Basophils Percent Auto 1.1 % (0-2); Eosinophils Absolute Auto 200 /uL (0-450); Eosinophils Percent Auto 3.4 % (2-4); Hematocrit 29.3 % (36-46); Hemoglobin 10.1 g/dL (12.0-16.0); Lymphocytes Absolute Auto 800 /uL (1100-4500); Lymphocytes Percent Auto 13.6 % (25-40); Mean Corpuscular HGB Conc 34.4 % (30-36); Mean Corpuscular Hemoglobin 33.6 PG (26-34); Mean Corpuscular Volume 97.5 fL (80-100); Monocytes Absolute Auto 400 /uL (0-900); Monocytes Percent Auto 7.5 % (3-14); Neutrophils Absolute Auto 4300 /uL (1500-7000); Neutrophils Percent Auto 74.4 % (50-75); Platelet Count 179 X10^3/uL (150-400); Red Blood Cell Count 3.01 X10^6/uL (4.0-5.2); Red Cell Distribution Width 12.8 % (11.6-14.8); White Blood Cell Count 5.8 X10^3/uL (4.5-11.0)
[2023-10-12 05:32] LABS: BUN Creatinine Ratio 29.3 (6-22); Blood Urea Nitrogen 22 mg/dL (7-17); Calcium 8.5 mg/dL (8.4-10.2); Carbon Dioxide 26 mmol/L (22-32); Chloride 106 mmol/L (98-107); Estimated Glomerular Filt Rate > 60 mL/min (>60); Glucose 84 mg/dL (80-110); HEMOLYSIS < 15 (0-50); Potassium 3.8 mmol/L (3.4-5.1); Sodium 138 mmol/L (137-145)
--- NOTE | 2023-10-12 07:08 | P.PN_ITS ---
Subjective Subjective Interval history: Elizabeth is a pleasant 83 year old female who is POD#4 s/p right hip hemiarthroplasty for a displaced right femoral neck fracture done by Dr. Huang. Patient has baseline confusion/dementia, is at bedside who states their son is healthcare proxy although denies him being the healthcare POA. states the plan is to d/c to home today, their son plans to stay with them for a short time and get home health as well. Denies having any pain, states she is felling well. Patient has little insight into injury/surgery. Denies chest pain, SOB, nausea, vomiting, fever, chills. Operative Date/Time/Diagnoses Date of procedure: 10/08/23 Pre-op diagnosis: Displaced right femoral neck fracture Post-op diagnosis: same Procedure & Clinicians Procedure: Right hip hemiarthroplasty Same procedure as scheduled: Yes Surgeon: Lon Huang Click Yes if Unassisted: Yes Anesthesia Type: General and Local Operative Notes Estimated Blood Loss (mL): 200 Procedure in detail: Implants: SimpleTuitionuy Cemented Hemiarthroplasty: * Size 3 standard offset C Stem Cemented Femoral Stem * Size 47 -3 Unipolar Femoral Head Exam Vital Signs (past 8 hours): - 10/12/23 00:00 10/12/23 04:00 Temperature 98.1 F 98.4 F Pulse Rate 75 89 Respiratory Rate 16 17 Blood Pressure 120/65 125/57 L Pulse Oximetry 95 94 Oxygen Flow Rate 0 0 Fraction of Inspired Oxygen 24 SaO2/FiO2 Ratio 387 Oxygen Delivery Method Room Air Oxygen Flow Rate 0 Const General: cooperative and comfortable Resp Effort & Inspection: normal respiratory effort and able to speak in complete sentences Cardio Rate: regular rate Skin Other: Clean and dry Aquacel dressing intact over the right anterior hip. Neuro General: patient awake and oriented (person and time. Not oriented to place or situation.) Extrem Other: 5/5 strength with EHL, DF, PF. Calves soft and non-tender. No pain to palpation of right lower extremity. Sensation intact throughout the right lower extremity. Objective Labs 10/12/23 04:52 10/12/23 04:52 Labs: Laboratory Results - last 24 hr 10/12/23 04:52 WBC 5.8 RBC 3.01 L Hgb 10.1 L Hct 29.3 L MCV 97.5 MCH 33.6 MCHC 34.4 RDW 12.8 Plt Count 179 Neut % (Auto) 74.4 Lymph % (Auto) 13.6 L [place] % (Auto) 7.5 Eos % (Auto) 3.4 Baso % (Auto) 1.1 Neut # (Auto) 4300 Lymph # (Auto) 800 L [place] # (Auto) 400 Eos # (Auto) 200 Baso # (Auto) 100 Sodium 138 Potassium 3.8 Chloride 106 Carbon Dioxide 26 BUN 22 H Creatinine 0.75 Estimated GFR > 60 BUN/Creatinine Ratio 29.3 H Glucose 84 Calcium 8.5 PFSH Social History household members: spouse Smoking Status: Never smoker Assessment & Plan Post-op Assessment and plan (1) Fracture of femoral neck, right: Assessment and Plan narrative: s/p right hip hemiarthroplasty for a displaced right femoral neck fracture Postoperative Procedures: Procedures Operation Date: 10/08/23 14:30 Actual Procedure Side Surgeon p marlo Hip Arthroplasty/Anterior Approach Right Lon Huang MD Postoperative day: 4 Postoperative plan narrative: Answered all patient and questions. Weightbearing as tolerated. Does not need to comply with anterior hip precautions as her dementia would make this too challenging for her to remember. Maintain dressing until follow up in 2 weeks with our clinic. Please send with spare Aquacel dressings as patient is likely to remove them due to her dementia. Recommend use of a walker if patient will comply with this Has adequate home help from family but may require home health due to combination of underlying dementia and this injury Continue multimodal pain control, ice to the hip as needed. Aspirin 81 twice per day for DVT prophylaxis Follow up at [facility] in 2 weeks Quality VTE Deep Vein Thrombosis/Pulmonary Embolism Present on Admission: No
[2023-10-12 08:00] VITALS: BP 121/59; PULSE 75; RESP 16; TEMP 36.4; O2SAT 95
[2023-10-12] MEDS: ASPIRIN EC 81 MG TABLET PO (08:09)
--- NOTE | 2023-10-12 10:05 | P.DS_ITS ---
History of Present Illness History of Present Illness Chief complaint: GLF/ Right groin pain Narrative: Patient seen in preop holding. Unable to provide history due to dementia. provides history. 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 She has no known medical history as she does not see a physician regularly. She had a ground level fall and was airlifted here. She has been diagnosed with a right femoral neck fracture which is displaced. She has pain in the right hip. It is worsened by movement and partially alleviated by rest. It has been present since the time of injury. Discharge Providers Provider Date of admission: 10/07/23 20:39 Discharge Date: 10/12/23 Primary care physician: [place] Sean Consults: 10/07/23 20:20 Consult to Orthopedic Surgery Stat Comment: Consulting Provider: Lon Huang Reason for consultation: Femoral neck fracture Has provider been notified: Yes 10/07/23 20:24 Consult to Discharge Planning Routine Comment: 10/08/23 20:45 Consult to Discharge Planning Routine Comment: Consult to Occupational Therapy Evaluate & Treat Comment: Physician Instructions: Evaluate and treat Consult to Physical Therapy Evaluate & Treat Comment: Physician Instructions: post op SUE protocol Discharge provider: Kyle Zhang MD Summary Hospital Course Discharge Diagnosis: # Acute slightly displaced right femoral neck fracture after ground-level fall, pathologic due to osteoporosis, present on admission and improving. - s/p surgical management on 10/08/23. - will be complicated by cognitive impairment which is suspected. # Dementia with behavioral disturbance, present on admission and active. - has had declining cognition over the past few years per family. - patient has fear of provider / medical establishment at baseline. # Acute blood loss anemia, present on admission and active. - Hg stable at 10.3. likely blood loss due to surgery. Continue to monitor with daily cbc. No signs or symptoms of active bleeding currently. Hospital Course: She was admitted with a hip fracture and underwent ORIF without complication. She did well post procedure. She advanced with therapies and her wanted to take her home to [facility]. They will decline any prescriptions and will accept Home Health. Status at Discharge Cognitive/behavioral status at discharge: oriented Functional status at discharge: uses cane/walker Overall status at discharge: patient is progressing back to baseline Time Spent with Patient Time spent: Greater than 30 minutes Exam Vital Signs (past 8 hours): - 10/12/23 04:00 10/12/23 08:00 Temperature 98.4 F 97.6 F Pulse Rate 89 75 Respiratory Rate 17 16 Blood Pressure 125/57 L 121/59 L Pulse Oximetry 94 95 Oxygen Flow Rate 0 Fraction of Inspired Oxygen 24 SaO2/FiO2 Ratio 387 Oxygen Delivery Method Room Air Oxygen Flow Rate 0 Narrative Exam Narrative: NAD breathing comfortably. Speech is slow No leg edema Objective Imaging Multiple studies:: Radiologist's impression: Hip Xray: Acute slightly displaced right femoral neck fracture as above. Labs 10/12/23 04:52 10/12/23 04:52 Labs: Laboratory Results - last 24 hr 10/12/23 04:52 WBC 5.8 RBC 3.01 L Hgb 10.1 L Hct 29.3 L MCV 97.5 MCH 33.6 MCHC 34.4 RDW 12.8 Plt Count 179 Neut % (Auto) 74.4 Lymph % (Auto) 13.6 L [place] % (Auto) 7.5 Eos % (Auto) 3.4 Baso % (Auto) 1.1 Neut # (Auto) 4300 Lymph # (Auto) 800 L [place] # (Auto) 400 Eos # (Auto) 200 Baso # (Auto) 100 Sodium 138 Potassium 3.8 Chloride 106 Carbon Dioxide 26 BUN 22 H Creatinine 0.75 Estimated GFR > 60 BUN/Creatinine Ratio 29.3 H Glucose 84 Calcium 8.5 PFSH Social History household members: spouse Smoking Status: Never smoker Discharge Assessment & Plan Assessment and Plan Assessment: # Acute slightly displaced right femoral neck fracture after ground-level fall, pathologic due to osteoporosis, present on admission and improving. - s/p surgical management on 10/08/23. - will be complicated by cognitive impairment which is suspected. # Dementia with behavioral disturbance, present on admission and active. - has had declining cognition over the past few years per family. - patient has fear of provider / medical establishment at baseline. # Acute blood loss anemia, present on admission and active. - Hg stable at 10.3. likely blood loss due to surgery. Continue to monitor with daily cbc. No signs or symptoms of active bleeding currently. Plan of Treatment: Discharge home, declined prescriptions. Home health. They do said they will follow up with PCP within next several days. Would advise aspirin b.i.d. for 6 weeks for DVT prophylaxis. Discharge Plan Discharge Plan Patient Disposition: Home Provider Discharge Comment: Follow up at [facility] in 2 weeks for post-op appointment. Discharge orders & Medications Prescriptions: No Action No Known Home Medications Medication counseling provided by Pharmacist: No Follow up/Referrals: Lon Huang MD [Physician] - (please call & schedule a 2 week post op follow up with [facility] ) Diet/Activity/Treatments Diet: Diet as Tolerated and Regular Activity: Weight bearing as tolerated. Cold/Heat Therapy: Ice to the hip as needed for additional pain control. Skin/Wound/Dressing Care Report to your healthcare provider any signs of infection, such as:: chills, fever, night sweats, unusual drainage and unusual redness Dressing: Keep dressing intact until 2 week post-op appointment. Keep dressing clean and dry. If dressing becomes dirty or saturated okay to remove and replace with another Aquacel dressing or clean and dry gauze. Other wound treatment: NO soaking the incision site in pools or tubs. No topical ointments or creams to the incision site. Visit Report/Discharge Packet Instructions: DI for Hip Replacement Stand Alone Forms: Patient Portal/API Quality VTE Deep Vein Thrombosis/Pulmonary Embolism Present on Admission: No MIPS - DC The patient has a history of heart transplant or Left Ventricular Assist Device (LVAD). If yes, STOP here.: No The patient has current or prior documentation of left ventricular ejection fraction (LVEF) less than or equal to 40%, or moderate or severely depressed left ventricular systolic function.: No
--- NOTE | 2023-10-12 11:47 | PC.NURSE ---
Patient is A&OX1-2 forgetful and pleasantly confused per baseline. VSS, afebrile on RA. Aquacel to R hip c/d/i. at bedside supportive. He is A&OX3, and discusses discharge plan with and CM this a.m. Patient is cleared medically for discharge back to [facility]. Her verbalizes understanding of site care, s/sx of infection, hip precautions, medications as well as follow up appointment with MD Huang office in 2 weeks. She is escorted to private vehicle with her for discharge home this a.m. at approximately 1130 this a.m.
--- NOTE | 2023-10-12 16:03 | CM.DPNOTE ---
DCP Note [employer] reviewed EMR. Per provider, medically cleared to dc today, in agreement with priority boarding pass. [employer] coordinated with son via email often throughout the day. Carlos Alberto at home arranging equip/CGs. [employer] completed f2f, ANA LUISA Flores scanned into chart. ANA LUISA Flores kindly agreed to notify [facility] of pt's dc. RN/PT/OT/PLANT AND EQUIPMENT WORKER/[employer] to follow. [employer] met with pt and spouse at bedside. Spouse to transport home in POV. Do not have a phone, asked me to coordinate with son Carlos Alberto via email on their behalf that [place]. [employer] provided pt and spouse with priority boarding pass. [employer] answered questions about HH to best of ability. Plan: home today with spouse/son to support at home. PCP Appt Tuesday, [facility] to follow after that. CM team will continue to follow as needed. SHANKAR Ramirez
== END 2023-10-12 11:33 | disposition home health service (06) | DRG 522 ==
LOC: ED 20:21 → AC 20:39
PROVIDERS: Orthopaedic Surgery Adult Reconstructive Orthopaedic Surgery; Student in an Organized Health Care Education/Training Program; Admitting Provider Internal Medicine; Emergency Provider Emergency Medicine; Referring Provider Emergency Medicine; Visit Provider Internal Medicine
PROC: 0SRR0J9 Replacement of Right Hip Joint, Femoral Surface with Synthetic Substitute, Cemented, Open Approach (ICD-10-PCS; CPT 27130; principal; 2023-10-08 14:30)
DX: M80.051A Age-related osteoporosis with current pathological fracture, right femur, initial encounter for fracture (principal); D62 Acute posthemorrhagic anemia; F03.C11 Unspecified dementia, severe, with agitation
CPT/HCPCS: 36415; 73502; 76000; 80048; 80053; 81001; 83735; 85025; 85610; 86850; 86900; 86901; 94762; 97110; 97163; 97167; 97530; 97535; 99284; 99285; C1776; J0330; J0690; J1170; J1630; J2060; J2250; J2405; J2704; J3010